=== PATIENT | male | born 1950 | race Caucasian/White ===

== ENCOUNTER 2020-11-08 08:55 | Emergency (ER) | payer MEDICARE, SELFPAY ==
[2020-11-08] VITALS (11 sets, daily range): BP systolic 122–162; BP diastolic 56–81; PULSE 61–82; RESP 16–25; TEMP 36.9; O2SAT 95–98
--- NOTE | ~2020-11-08 | XR_ITS ---
EXAMINATION: XR chest 1V portable DATE: 11/08/2020 10:13 INDICATION: Expressive aphasia. TECHNIQUE: A single frontal view of the chest was obtained. COMPARISON: Chest 2 views 01/30/2018, chest CT 06/08/2016 FINDINGS: There are airspace opacities in the lower lung zones. A calcified left lung nodule and calc ified left hilar lymph nodes are consistent with old granulomatous disease. No pleural effusion or pn eumothorax. The heart size is normal. IMPRESSION: 1. Airspace opacities in the lower lung zones, consistent with atelectasis or less likely pneumonia. Reviewed, dictated and finalized at location B. L ATTORNEY IMPRESSION: 1. Airspace opacities in the lower lung zones, consistent with atelectasis or l ess likely pneumonia.
--- NOTE | ~2020-11-08 | CT_ITS ---
EXAMINATION: CTA BRAIN/CAROTID DATE: 11/08/2020 09:58 INDICATION: Slurred speech TECHNIQUE: Computed tomographic angiography (CTA) of the head and neck was performed with 100 mL Omni paque-350 intravenous contrast. Multiplanar reconstructions and maximum intensity projection 3D-recon structions of the carotid arteries and of the intracranial arteries were created by the technologist on a separate workstation. Precontrast CT of the head was also obtained. Automated exposure control and iterative reconstruction technique were employed.The dose-length product was 1723.06 mGy-cm. COMPARISON: None. FINDINGS: Carotid arteries: There is 30% stenosis of the right carotid bulb relative to normal distal artery lumen diameter (NASC ET criteria). There is complete occlusion of the left carotid bulb relative to normal distal artery l umen diameter. There is reconstitution of the left internal carotid artery at the level of the petrou s portion of the artery likely via collaterals which are too small to visualize. The bilateral cervic al vertebral arteries are codominant and without hemodynamically significant stenosis. Cervical soft tissues and visualized superior mediastinum are unremarkable. Mild mild emphysema at the visualized u pper lungs. Thoracic aorta is normal in caliber with no dissection. Head: Moderate sized region of cytotoxic edema in the left frontal lobe with effacement of the immediately adjacent sulci consistent with acute infarct. No acute intracranial hemorrhage or abnormal extra-axia l fluid collections. There is mild increased prominence of the subarachnoid spaces overlying the conv exities consistent with mild age-appropriate volume loss. Ventricles are normal and symmetric. No mas s/mass effect. No abnormally enhancing brain lesions. The orbits and mastoid air cells are normal. Mi ld mucosal thickening in the bilateral ethmoid sinuses. Intracranial arteries Atherosclerotic plaque at the bilateral carotid siphons with 30% stenosis on the right and up to 60% stenosis on the left. There is no hemodynamically significant stenosis in the vertebral basilar carot id arteries. Vertebral arteries are codominant. There are no aneurysms identified. Both A1 and P1 se gments are patent. Cerebral arterial arborization appears symmetric. IMPRESSION: 1. Moderate-sized region of cytotoxic edema in the left frontal lobe consistent with acute infarct. Bart Garay discussed these findings with Dr. Brown at 10:22 AM. 2. 30% stenosis of the right carotid bulb relative to normal distal artery lumen diameter (NASCET cri teria). 2. 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 3. Atherosclerotic disease at the bilateral carotid siphons with 30% stenosis on the right and 60% on the left. 4. Mild emphysema. Reviewed, dictated and finalized at location A. TIC LIFE LABORER IMPRESSION: 1. Moderate-sized region of cytotoxic edema in the left frontal lobe consistent with acute infarct. Dr. Garay discussed these findings with Dr. Brown at 10:22 AM. 2. 30% stenosis of the right carotid bulb relative to normal distal artery lume n diameter (NASCET criteria). 2. 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 3. Atherosclerotic disease at the bilateral carotid siphons with 30% stenosis o n the right and 60% on the left. 4. Mild emphysema.
[2020-11-08 09:01] LABS: Glucose Point of Care 105 (65-105)
--- NOTE | 2020-11-08 09:06 | ECG_ITS ---
Measurements Intervals [place] Rate: 68 P: 64 WA: 162 QRS: -14 QRSD: 86 T: 62 QT: 373 QTc: 398 Interpretive Statements SINUS RHYTHM ATRIAL PREMATURE COMPLEX BORDERLINE ST ABNORMALITY- ANTEROLATERAL LEADS BASELINE ARTIFACT- V4, V6 BORDERLINE ECG Electronically Signed On 11-08-2020 9:17:11 EXERCISE SCIENTIST by Enoch Muñoz D.O.
--- NOTE | 2020-11-08 09:19 | ED.NEUROSD ---
HPI - Neuro Symptoms/Deficit General Chief Complaint: Suspected CVA Stated Complaint: aphasic, last known normal 1800 12.7 Time Seen by Provider: 11/08/20 08:59 Source: patient Mode of arrival: ambulatory Limitations: language barrier and altered mental status History of Present Illness HPI Narrative: Patient 70-year-old male brought in by EMS due to aphasia. Patient was found this morning by son aphasic. Last known well was 6 PM last night. Related Data Home Medications Medication Instructions Recorded Confirmed naproxen sodium 220 mg tablet 220 mg PO BID PRN 09/05/20 09/05/20 Allergies Allergy/AdvReac Type Severity Reaction Status Date / Time No Known Allergies Allergy Verified 11/08/20 09:36 Review of Systems Review of Systems: All systems reviewed & are unremarkable except as noted in HPI and below Constitutional: Constitutional: Denies body ache(s), Denies chills, Denies excessive sweating, Denies fatigue, Denies fever(s), Denies headache(s), Denies lethargy, Denies malaise, Denies weakness and Denies weight loss Eyes: Eyes: Denies blurry vision, Denies change in vision and Denies loss of vision ENT: Denies dizziness, Denies ear discharge, Denies headache(s), Denies lip swelling, Denies epistaxis, Denies nasal congestion, Denies neck pain, Denies throat swelling and Denies tongue swelling Cardiovascular: Cardiovascular: Denies chest pain, Denies chest pain at rest, Denies chest pain with activity, Denies diaphoresis, Denies rapid heart rate, Denies edema, Denies irregular heart rhythm, Denies lightheadedness, Denies palpitations, Denies dyspnea and Denies dyspnea on exertion Respiratory: Respiratory: Denies chest congestion, Denies cough, Denies hemoptysis, Denies dyspnea and Denies dyspnea on exertion Gastrointestinal: Gastrointestinal: Denies abdominal pain, Denies melena, Denies hematochezia, Denies diarrhea, Denies nausea, Denies vomiting and Denies hematemesis Musculoskeletal: Musculoskeletal: Denies abnormal gait, Denies deformity, Denies joint swelling, Denies limited range of motion, Denies neck pain and Denies numbness Neurologic: Denies abnormal gait, Denies confusion, Denies dizziness, Denies headache(s), Denies focal weakness, Denies loss of vision, Denies numbness, Denies Other visual disturbances and Denies weakness Psychiatric: Psychiatric: Denies confusion, Denies depression, Denies auditory hallucinations, Denies homicidal ideation and Denies suicidal ideation Endocrine: Endocrine: Denies cold intolerance, Denies excessive sweating, Denies fatigue, Denies heat intolerance and Denies palpitations Hematologic/Lymphatic: Hematologic/Lymphatic: Denies easy bleeding and Denies easy bruising Allergic/Immunologic: Allergic/Immunologic: Denies lip swelling, Denies throat swelling and Denies tongue swelling PMFSH Family History Family History Mother Patient's mother is in good health Social History Social History (Updated 09/05/20 @ 08:25 by ALVIN Esteves) Smoking status: Current every day smoker Tobacco type: cigarettes Alcohol intake: never Exam Narrative: Exam Narrative: NIH stroke scale: 9 Const: General: cooperative, healthy appearing, comfortable, no acute distress, well developed, alert and awake; No confusion Orientation/consciousness: No confusion Limitations: no limitations HENMT: Head: normal to inspection, normocephalic and atraumatic Ears: hearing grossly normal bilaterally, TM normal on the right and TM normal on the left General nose exam: Normal external nose present, Normal nares present and No nasal discharge present Face and sinus: normal facial exam Mouth: Yes Normal oral and palatal mucosa present, Yes lip normal, Yes tongue normal and Yes oropharynx normal Throat: posterior oropharynx normal, tonsils normal and uvula midline Eyes: General: appearance normal, both eyes and all related structures Pupils
[2020-11-08 09:22] LABS: Basophils Percent Auto 0.4 % (0.2-1.2); Eosinophils Absolute Auto 0.2 K/mm3 (0-0.3); Eosinophils Percent Auto 2.1 % (0-4.4); Hematocrit 44.7 % (42.0-52.0); Hemoglobin 15.7 g/dL (14.0-18.0); Immature Granulocyte Absolute 0.01 K/mm3 (0.00-0.031); Immature Granulocyte Percent A 0.1 % (0-0.5); Lymphocytes Absolute Auto 2.21 K/mm3 (0.9-3.2); Lymphocytes Percent Auto 27.1 % (18.3-44.2); Mean Corpuscular HGB Conc 35.1 g/dl (32-36); Mean Corpuscular Hemoglobin 32.8 pg (26-34); Mean Corpuscular Volume 93.5 fl (80-100); Mean Platelet Volume 9.3 fl (7.4-10.4); Monocytes Absolute Auto 0.5 K/mm3 (0.1-0.6); Monocytes Percent Auto 5.9 % (2.6-8.5); Neutrophils Absolute Auto 5.3 K/mm3 (1.3-6.7); Neutrophils Percent Auto 64.4 % (45.5-73.1); Platelet Count Result 230 k/mm3 (150-375); Red Blood Count 4.78 M/mm3 (4.6-6.20); Red Cell Distribution Width 12.6 % (11.5-14.5); White Blood Count 8.2 K/mm3 (4.5-10.0)
[2020-11-08 09:32] LABS: INR 0.9; Prothrombin Time 12.6 Seconds (11.1-14.7)
[2020-11-08 09:35] LABS: Anion Gap 6 mmol/L (8-16); Blood Urea Nitrogen 15 mg/dL (9-20); Calcium 9.2 mg/dL (8.4-10.2); Carbon Dioxide 25 mmol/L (22-30); Chloride 106 mmol/L (98-107); Estimated CRCL calculation 70 ml/min; Estimated Glomerular Filt Rate > 60; Glucose 111 mg/dL (75-110); Potassium 4.2 mmol/L (3.4-5.0); Sodium 137 mmol/L (137-145)
[2020-11-08 09:47] LABS: Troponin I < 0.012 ng/mL (0.000-0.034)
== END 2020-11-08 11:50 | disposition short-term general hospital (02) ==
PROVIDERS: Emergency Provider Emergency Medicine; PCP Internal Medicine
DX: I63.9 Cerebral infarction, unspecified (principal); F17.210 Nicotine dependence, cigarettes, uncomplicated; R29.709 NIHSS score 9; I49.1 Atrial premature depolarization; R94.31 Abnormal electrocardiogram [ECG] [EKG]; I65.23 Occlusion and stenosis of bilateral carotid arteries; J43.9 Emphysema, unspecified
CPT/HCPCS: 36415; 70496; 70498; 71045; 80048; 82948; 84484; 85025; 85610; 85730; 93005; 99284; 99285; Q9967

== ENCOUNTER 2021-02-24 10:00 | Outpatient (RCR) | payer MEDICARE, SELFPAY ==
--- NOTE | 2020-11-28 15:31 | STOPEVAL ---
SPEECH THERAPY INITIAL EVALUATION Thank you for referring Ashok Young to [facility].? The patient is scheduled to be seen for therapy? 2-3x/week for 4 weeks. (2-3 times variability as pt relies on others for transportation) Please review, sign, date and return this plan of care MEREDITH. I agree with and certify that the following plan of care is medically necessary. Referring Physician Date Attending Provider: DO JAZMINE Aggarwal Outpatient Evaluation Start: 11/28/20 10:06 Freq: Status: Active Protocol: Document 11/28/20 10:06 BECHERERT (Rec: 11/28/20 11:01 BECHERERT [email or web address]) Therapy Assessment Status Assessment Status Assessment Status Evaluation Outpatient Past Medical History Neurological History Hx Cerebrovascular Accident (CVA) Yes: 11-08-20 Cardiovascular History Hx Hypercholesterolemia Yes Hx Hypertension Yes Respiratory History Hx Chronic Obstructive Pulmonary Disease Yes (COPD) Hx Other Respiratory Disorders Yes: SMOKES 2PPD STARTED AT AGE 11 Gastrointestinal History Hx Gastrointestinal Disorders No Significant History Genitourinary History Hx Benign Prostatic Hyperplasia Yes Musculoskeletal History Hx Musculoskeletal Disorders No Significant History Hematological History Hx Hematological Disorders No Significant History Endocrine History Hx Endocrine Disorders No Significant History HEENT History Hx HEENT Disorders No Significant History Integumentary History Hx Skin Disorders No Significant History Reproductive History Hx Reproductive Disorders No Significant History Psychosocial History Hx Psychiatric Disorders No Significant History Pain History History of Any Previous or Ongoing No Significant History Instance of Pain Anesthesia History Hx Anesthesia Reactions No Significant History Prior Level of Function Activity Level (Last 3 Months) Occupation retired Hand Dominance Left Activity of Daily Living Ability Independent Indoor/Home Mobility Independent Community Mobility Independent Stairs Ability Independent Functional Cognition (Planning, Shopping Independent , Taking Medications) Cooking Yes Cleaning Yes Laundry Yes Shopping Yes Driving Yes Home Setting Home Type Apartment Support Available Local Family Support Mobility Assistive Devices (Used Last 3 None Months) Prior Swallow Level Prior Intake Method Oral Prior Diet Regular (Level 7 Diet) Prior Liquid Consistency Thin (Level 0 Diet) P
--- NOTE | 2020-12-23 14:37 | PCSTNOTE ---
10th visit Progress Note: Subjective: Pleasant and very cooperative. Summary of Progress: Upon initial evaluation, the pt presented with severe aphasia and verbal apraxia. Speech therapy was recommended 3x/week for 4 weeks. As a result of the ongoing treatment and after 10 visits, the pt has exhibited the following improvement: Auditory Comprehension: Pt exhibits improved ability to follow functional conversation; however, ability to follow directions of multi steps is inconsistent. He is able to respond accurately to complex yes/no questions with approximately 80% accuracy Reading Comprehension: Pt is able to identify letters and numbers as well as single words in field of 4 with 80% accuracy. Treatment has advanced to 3-4 word (simple) sentences. Verbal expression: Pt now presents with ability to repeat multi syllable words and phrases/short sentences with approximately 90% and 80% accuracy, respectively. Pt also exhibits ability to participate in brief exchanges in conversation; struggle behaviors, dysfluency, multi attempts, paraphasic errors are exhibited Written expression: Writing has been of minimal focus per pt choice as he wants treatment to focus mainly on verbal expression. Recommendations: Continued ST x3 week 4.
--- NOTE | 2020-12-26 15:02 | STOPEVAL ---
SPEECH THERAPY PROGRESS REPORT AND PLAN OF CARE UPDATE: Thank you for referring Ashok Young to [facility].? The pt is achieving goals and making progress meeting medical necessity for further OP speech therapy. He is scheduled to be seen for therapy? 3x/week for 6 weeks pending insurance approval. Please review, sign, date and return this plan of care MEREDITH. I agree with and certify that the following plan of care is medically necessary. Referring Physician Date Attending Provider: Gregor Tam DO Referring Provider: JAZMINE Outpatient RE-Evaluation Start: 11/28/20 10:06 Freq: Status: Active Protocol: Document 12/26/20 10:05 BECHERERT (Rec: 12/26/20 11:14 BECHERERT [email or web address]) Therapy Assessment Status Assessment Status Assessment Status Re-evaluation Outpatient Past Medical History Neurological History Hx Cerebrovascular Accident (CVA) Yes: 11-08-20 Cardiovascular History Hx Hypercholesterolemia Yes Hx Hypertension Yes Respiratory History Hx Chronic Obstructive Pulmonary Disease Yes (COPD) Hx Other Respiratory Disorders Yes: SMOKES 2PPD STARTED AT AGE 11 Gastrointestinal History Hx Gastrointestinal Disorders No Significant History Genitourinary History Hx Benign Prostatic Hyperplasia Yes Musculoskeletal History Hx Musculoskeletal Disorders No Significant History Hematological History Hx Hematological Disorders No Significant History Endocrine History Hx Endocrine Disorders No Significant History HEENT History Hx HEENT Disorders No Significant History Integumentary History Hx Skin Disorders No Significant History Reproductive History Hx Reproductive Disorders No Significant History Psychosocial History Hx Psychiatric Disorders No Significant History Pain History History of Any Previous or Ongoing No Significant History Instance of Pain Anesthesia History Hx Anesthesia Reactions No Significant History Pain Assessment Timing of Pain Assessment Timing of Pain Assessment Assessment Self Report Self Report Pain Level 0 Pain Score Pain Score 0: Self Report Language Evaluation Auditory Comprehension Complex Yes/No Questions (% Accuracy (0- 80 100)) Auditory Comprehension One-Step 100 Directives (% Accuracy (0-100)) Auditory Comprehension of Two-Step 100 Directives (% Accuracy (0-100)) Auditory Comprehension of Simple 100 Paragraphs (% Accuracy (0-100)) Auditory Comprehension of Complex 100 Paragraphs (% Accuracy (0-100)) Additional Auditory Comprehension Object ID: [email or web address]: 100% with 1 Comments correction Reading Comprehension Name Recognition Yes Numeral Comprehension (% Accuracy (0-100 71 )) Letter Comprehension (%
--- NOTE | 2021-01-23 15:33 | PCSTNOTE ---
10th (actually 20th) visit Progress Note: Subjective: Pleasant and very cooperative. Pt does exhibit frustration intolerance at times. Summary of Progress: Upon initial evaluation, the pt presented with severe aphasia and verbal apraxia. Speech therapy was recommended 3x/week for 4 weeks. As a result of the ongoing treatment and after 20 visits, the pt has exhibited the following improvement: Auditory Comprehension: Pt exhibits improved ability to follow functional conversation; however, ability to follow directions of multi steps is inconsistent. He is able to respond accurately to complex yes/no questions within functional contexts (not as accurate in structured/out of context questions) with approximately 90% accuracy Reading Comprehension: Pt is able to identify letters and numbers as well as single words in field of 4 with 90% accuracy. Treatment has advanced to 3-4 word (simple) sentences. Verbal expression: Pt now presents with ability to repeat multi syllable words and phrases/short sentences with approximately 90% and 80% accuracy, respectively with increasing imposed delays . Pt also continues to exhibit ability to participate in brief exchanges in conversation; slightly less struggle behaviors, dysfluency, multi attempts, &/or paraphasic errors are exhibited Written expression: Writing continues to be of minimal focus per pt choice as he wants treatment to focus mainly on verbal expression. Recommendations: Continued ST x3 week 4.
--- NOTE | 2021-02-10 13:29 | STOPEVAL ---
SPEECH THERAPY PROGRESS REPORT AND PLAN OF CARE UPDATE: Thank you for referring Ashok Young to [facility] [place]Note 2[facility]? The patient is scheduled to be seen for therapy? 2-3x/week (dependent on insurance approval) for 6 weeks. Please review, sign, date and return this plan of care MEREDITH. I agree with and certify that the following plan of care is medically necessary. Referring Physician Date Attending Provider: DO JAZMINE Aggarwal Outpatient RE-Evaluation Language Evaluation Auditory Comprehension Auditory Comprehension of Complex 100 Paragraphs (% Accuracy (0-100)) Factors Limiting Auditory Comprehension Aphasia Overall Auditory Comprehension Ability Mild Deficits Additional Auditory Comprehension - Responds to complex yes/no Comments questions with 90% accuracy when questions are related to functional situations; however, pt appears to have difficulty when #'s are within questions or if questions are of an abstract nature. - Responds to multi directives using & manipulating objects with 50% accuracy; overall,it is noted that pt requires repetition and may even require statements and directions to be reworded. Pt' s family and friends state that he understands their conversations without difficulty. It is suspected pt may have increased diffculty at Dr appointments, the bank, post office etc. Reading Comprehension Name Recognition Yes Numeral Comprehension Comments Identify letters & numerals in increasing marion: 2 digits: #'s in [place] of 3, 4, 5, & 6 all with 90% or greater accuracy Letters: Field of 3: 90% accuracy; letters in field of 4: 25% Single Word Comprehension (% Accuracy (0 71 -100)) Comprehension: 3-4 Words (% Accuracy (0- 25 100)) Overall Reading Comprehension Ability Moderate Deficits Comments Related to Reading attempts to spell out words Comprehension but uses inaccurate letters ( paraphasic errors) Verbal Expression Vowel Imitation (% Accuracy (0-100)) 90 Automatic Speech Ability Mild Deficits [place] [facility]
--- NOTE | 2021-02-27 08:58 | PCSTNOTE ---
This treatment is being continued on visit number [id number]. Please see documentation on both accounts to view progress. Completed interventions, outcomes, and problems have been marked as Inactive to facilitate the copying of the Care plan routine for recurring accounts.
== END 2021-02-26 23:59 | disposition home or self-care (01) ==
LOC: ANHST 10:00
PROVIDERS: PCP Internal Medicine; Visit Provider Internal Medicine
DX: I69.320 Aphasia following cerebral infarction (principal); I69.390 Apraxia following cerebral infarction
CPT/HCPCS: 92507; 92523

== ENCOUNTER 2021-03-10 13:02 | Outpatient (CLI) | payer MEDICARE, SELFPAY ==
--- NOTE | ~2021-03-10 | CT_ITS ---
EXAMINATION: CT lung screening DATE: 03/10/2021 13:37 INDICATION: pers Hx tobacco dependence Z87.891 Personal history of nicotine dependence TECHNIQUE: Computed tomography (CT) of the chest was performed without intravenous contrast. Addition al 3D reconstructions utilizing coronal maximum intensity projection (MIP) were performed. Automated exposure control and iterative reconstruction technique were employed. The dose-length product was 11 2.14 mGy-cm. COMPARISON: Chest CT dated 06/08/2016 FINDINGS: Mild emphysema. Calcified left lower lobe nodule along with calcified left hilar and mediastinal lymp h nodes consistent with old granulomatous disease. No suspicious pulmonary nodules, pneumonia, pulmon radha edema or pleural effusion. Heart size is normal. Atherosclerotic coronary artery calcifications. Aortic valve callus location. No pericardial effusion. Thoracic aorta is normal in caliber. Mild thor acic levocurvature with moderate spondylosis and mild likely physiologic anterior wedging at T12 and L1. There are bridging osteophytes at multiple levels in the spine, consistent with diffuse idiopathi c skeletal hyperostosis (DISH). IMPRESSION: 1. . Lung-RADS category 1: Negative. Continue annual screening with noncontrast low-dose chest CT in 12 months. 2. Mild emphysema. Reviewed, dictated and finalized at location B.
== END 2021-03-10 13:03 | disposition home or self-care (01) ==
PROVIDERS: PCP Internal Medicine; Visit Provider Nurse Practitioner
DX: Z87.891 Personal history of nicotine dependence (principal); J43.9 Emphysema, unspecified
CPT/HCPCS: 71271

== ENCOUNTER 2021-05-24 10:04 | Emergency (ER) | payer MEDICARE, SELFPAY ==
--- NOTE | ~2021-05-24 | XR_ITS ---
XR chest 1V 05/24/2021 11:26 Indication: Dizziness Procedure: AP view of the chest Comparison: 11/08/2020 Findings: Left basilar airspace disease. Heart size normal. Right lung clear. No pleural effusion or pneumothorax. No edema. No acute osseous abnormality. Impression: 1: Left basilar airspace disease may represent atelectasis or pneumonia. Reviewed, dictated and finalized at location B. Impression: 1: Left basilar airspace disease may represent atelectasis or pneumonia.
--- NOTE | ~2021-05-24 | CT_ITS ---
EXAMINATION: CT brain wo con DATE: 05/24/2021 11:24 INDICATION: Dizziness and confusion TECHNIQUE: Computed tomography (CT) of the head was performed without intravenous contrast. The dose- length product was 605.33 mGy-cm. Automated exposure control and iterative reconstruction technique w ere employed. COMPARISON: CT dated 11/08/2020 FINDINGS: There is a chronic left frontal lobe infarction. There is a chronic left parietal lobe infa rction. There is mild compensatory dilation of the frontal horn left lateral ventricle. No midline sh ift. Basilar cisterns are patent. There is intracranial atherosclerosis. No acute intracranial hemorr drake, infarction, mass or mass effect. Paranasal sinuses and mastoids are pneumatized. IMPRESSION: 1. No acute intracranial abnormality. 2: Chronic left frontal and parietal lobe infarctions. Reviewed, dictated and finalized at location B.
[2021-05-24 10:11] VITALS: BP 142/92; PULSE 78; RESP 18; TEMP 35.4; O2SAT 97
--- NOTE | 2021-05-24 10:36 | ECG_ITS ---
Measurements Intervals [place] Rate: 82 P: 51 W[place]: 172 QRS: -16 QRSD: 89 T: 54 QT: 360 QTc: 422 Interpretive Statements SINUS RHYTHM NONSPECIFIC T-WAVE ABNORMALITY- HIGH LATERAL LEADS BASELINE ARTIFACT- I, II, III, AVR, AVL,A VF, V1, V4-V6 BORDERLINE ECG Electronically Signed On 05-24-2021 10:37:49 CDT by Enoch Muñoz D.O.
[2021-05-24 10:45] VITALS: BP 138/76; PULSE 80; RESP 14; TEMP 36.8; O2SAT 98
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
[2021-05-24 11:50] LABS: Basophils Percent Auto 0.3 % (0.2-1.2); Eosinophils Absolute Auto 0.1 K/mm3 (0-0.3); Eosinophils Percent Auto 0.7 % (0-4.4); Hemoglobin 14.4 g/dL (14.0-18.0); Immature Granulocyte Absolute 0.07 K/mm3 (0.00-0.031); Immature Granulocyte Percent A 0.6 % (0-0.5); Lymphocytes Absolute Auto 1.07 K/mm3 (0.9-3.2); Lymphocytes Percent Auto 9.3 % (18.3-44.2); Mean Corpuscular HGB Conc 34.3 g/dl (32-36); Mean Corpuscular Hemoglobin 30.9 pg (26-34); Mean Corpuscular Volume 90.1 fl (80-100); Monocytes Absolute Auto 0.4 K/mm3 (0.1-0.6); Monocytes Percent Auto 3.8 % (2.6-8.5); Neutrophils Absolute Auto 9.8 K/mm3 (1.3-6.7); Neutrophils Percent Auto 85.3 % (45.5-73.1); Platelet Count Result 240 k/mm3 (150-375); Red Blood Count 4.66 M/mm3 (4.6-6.20); Red Cell Distribution Width 12.2 % (11.5-14.5); White Blood Count 11.5 K/mm3 (4.5-10.0)
[2021-05-24 12:01] LABS: Alanine Aminotransferase 37 U/L (4-50); Albumin Level 4.7 g/dL (3.5-5.1); Alkaline Phosphatase 102 U/L (38-126); Anion Gap 11 mmol/L (8-16); Aspartate Amino Transferase 35 U/L (17-59); Bilirubin,Total 0.5 mg/dL (0.2-1.3); Blood Urea Nitrogen 17 mg/dL (9-20); Calcium 9.8 mg/dL (8.4-10.2); Carbon Dioxide 24 mmol/L (22-30); Chloride 104 mmol/L (98-107); Estimated CRCL calculation 59 ml/min; Estimated Glomerular Filt Rate > 60; Glucose 116 mg/dL (75-110); Potassium 4.1 mmol/L (3.4-5.0); Sodium 139 mmol/L (137-145)
[2021-05-24 12:23] LABS: INR 0.9; Prothrombin Time 12.8 Seconds (11.1-14.7)
[2021-05-24 12:24] LABS: Partial Thromboplastin Time 26.5 SECONDS (22.3-36.8)
[2021-05-24 13:06] VITALS: BP 132/86; PULSE 79
[2021-05-24 13:10] VITALS: BP 152/85; BP 154/90; PULSE 80; PULSE 85
--- NOTE | 2021-05-24 13:26 | PC.NURSE ---
pt refusing cath for urine sample
== END 2021-05-24 14:14 | disposition home or self-care (01) ==
PROVIDERS: Emergency Provider Emergency Medicine; PCP Internal Medicine
DX: R42 Dizziness and giddiness (principal); I10 Essential (primary) hypertension; I69.320 Aphasia following cerebral infarction; Z87.891 Personal history of nicotine dependence; Z79.82 Long term (current) use of aspirin
CPT/HCPCS: 36415; 70450; 71045; 80053; 85025; 85610; 85730; 93005; 99284

== ENCOUNTER 2021-05-25 10:00 | Outpatient (RCR) | payer MEDICARE, SELFPAY ==
--- NOTE | 2021-02-27 09:00 | PCSTNOTE ---
The treatment documented on this account is a continuation of the treatment documented on visit number [id number]. Please see documentation on both accounts to view progress. The Plan of Care has been transitioned and updated within the new V#. I have addressed and agree with the discipline specific Problems, Interventions, and Goals for the current certification period. Completed interventions, outcomes, and problems have been marked as Inactive to facilitate the copying of the Care plan routine for recurring accounts.
--- NOTE | 2021-03-10 11:22 | PCSTNOTE ---
10th visit Progress Note: Subjective: Pleasant and very cooperative. Pt does exhibit frustration intolerance at times, but has been started on a medication. Summary of Progress: Auditory Comprehension: Pt exhibits improved ability to follow functional conversation; however, ability to follow directions of multi steps is inconsistent. He is able to respond accurately to complex yes/no questions within functional contexts (not as accurate in structured/out of context questions) with approximately 90-100% accuracy Reading Comprehension: Pt is able to identify 3 digit numbers in marion of to 6 with 90% + accuracy. Treatment has advanced to 3-4 word (simple) sentences; he is able to match 3-4 words to a picture (field of 3) with 60% accuracy. Verbal expression: Pt presents with ability to participate in more slightly more detailed conversational exchanges; pt demonstrates less struggle behaviors, and is increasingly able to formulate sentences. Dysfluency, multi attempts, &/or paraphasic errors are exhibited but has decreased by approximately 25%. Written expression: Writing continues to be of minimal focus per pt choice as he wants treatment to focus mainly on verbal expression. Recommendations: Continued ST 2-3x/week.
--- NOTE | 2021-03-24 14:40 | STOPEVAL ---
SPEECH THERAPY RE EVALUATION AND POC UPDATE: Thank you for referring Ashok Young to [facility].? The patient is scheduled to be seen for therapy? 2x/week for 4 weeks. Please review, sign, date and return this plan of care MEREDITH. I agree with and certify that the following plan of care is medically necessary. Referring Physician Date Attending Provider: Gregor Tam, DO Language RE Evaluation Auditory Comprehension Additional Auditory Comprehension Complex yes/no questions Comments responses are at 80% accuracy when re pt's interests; however, with abstract content , accuracy declines to 40% accuracy Reading Comprehension Numeral Comprehension Comments Pt is able to identify letters in increasing marion (4, 5 & 6) with 80% accuracy Pt is able to identify 3 digit numerals in increasing marion with 90% accuracy: MET up to FO6 Reading Comprehension Comments pt is able to ID 6 words re foods via pointing from a FO6 with 90% accuracy but is not able to point to body part indicated or locate written item in the room. pt is unable to demonstrate comprehension of 3-4 directives with 30% accuracy; however, pt is able to match a 4-5 word sentence to a picture in a field of 2. Response Latency Mild Deficits Comments Related to Reading inconsistent reading abilities Comprehension ; Verbal Expression Comments Related to Verbal Expression Pt is able to respond to ?wh? questions re immediate environment,context &/or familiar topic with 90% accuracy but accuracy is inconsistent; pt is progressing. Pt is able to produce open ended cued speech with 80% accuracy but accuracy is inconsistent; pt is progressing. * Following a spoken model, the pt will articulate a short phrase in response to a question with 75% accuracy but accuracy is inconsiste
--- NOTE | 2021-04-06 13:42 | PCSTNOTE ---
10th visit Progress Note: Subjective: Pleasant and very cooperative. Pt continues to exhibit frustration related to his inconsistent abilities with verbal expression. Summary of Progress: Auditory Comprehension: Pt exhibits improved ability to follow basic functional conversation; however, ability to comprehend complex questioning or follow directions of multi steps is inconsistent. In functional situations outside of therapy, pt has the assist of his son and friends for higher level comprehension needs, i.e. financial and medical. Reading Comprehension: Pt is able to identify 3 digit numbers in marion of to 6 with 90% + accuracy. Pt is able to identify a 5-6 word sentence from a field of 3 and match it to a picture; however, pt is unable to consistently read a 3-4 word directive and follow through. Verbal expression: Pt presents with ability to participate in more slightly more detailed conversational exchanges; pt demonstrates less struggle behaviors, and is increasingly able to formulate sentences. Dysfluency, multi attempts, &/or paraphasic errors are exhibited but has decreased by approximately 30-35%. Written expression: Writing continues to be of minimal focus per pt choice as he wants treatment to focus mainly on verbal expression. Recommendations: Continued ST 2x/week.
--- NOTE | 2021-04-21 13:54 | STOPEVAL ---
SPEECH THERAPY RE EVALUATION AND PLAN OF CARE UPDATE: Thank you for referring Ashok Young to [facility].?The pt continues to achieve steady albeit slow progress in the areas of verbal expression and auditory & reading comprehension. Due to his potential for further progress and improvement, the patient is scheduled to be seen for therapy?2x/week for 7 weeks (although, pt needs to take a week off related to family issues). Please review, sign, date and return this plan of care MEREDITH. I agree with and certify that the following plan of care is medically necessary. Referring Physician Date Admitting Provider: Attending Provider: Gregor Tam, Language RE Evaluation Auditory Comprehension Additional Auditory Comprehension Complex yes/no questions Comments responses are at 90% accuracy when re pt's interests; however, with abstract content , accuracy declines to 50-60% accuracy in which case multiple repetition is required as well as extra processing time and occasionally re wording information Reading Comprehension Reading Comprehension Comments Sentence ID: match field of 3 to a picture: 50% accuracy Pt can identify single words with 90% accuracy: pt is able to ID 6 words via pointing from a FO6 with 90%+ accuracy and is now able to point to ( WRITTEN) body part indicated or locate written item in the room. Pt remains unable to comprehension of 3-4 directives but is able to match a 4-5 word sentence to a picture in a field of 2. Response Latency Mild Deficits Factors Limiting Reading Comprehension Aphasia,Apraxia Comments Related to Reading inconsistent reading abilities Comprehension ; Verbal Expression Vowel Imitation (% Accuracy (0-100)) 90 [place] Speech WFL Single Word Imitation (% Accuracy (0-100 100 )) Phrase Imitation (% Accuracy (0-100)) 100 Automatic Cued Speech (% Accuracy (0-100 72 )) Open Ended Cued Speech (% Accuracy (0- 80 100)) WH Questions (% Accuracy (0-100)) 88 Comments Related to Verbal Expression Following a spoken model, the pt is able to articulate a short phrase in response to a question with 80%
--- NOTE | 2021-05-24 10:24 | PCSTNOTE ---
Pt came to appointment but became ill in the waiting room and decided to leave and go to ER.
--- NOTE | 2021-05-30 08:21 | PCSTNOTE ---
This treatment is being continued on visit number [id number]. Please see documentation on both accounts to view progress. Completed interventions, outcomes, and problems have been marked as Inactive to facilitate the copying of the Care plan routine for recurring accounts.
== END 2021-05-28 23:59 | disposition home or self-care (01) ==
LOC: ANHST 10:00
PROVIDERS: PCP Internal Medicine; Visit Provider Internal Medicine
DX: I69.320 Aphasia following cerebral infarction (principal); I69.390 Apraxia following cerebral infarction
CPT/HCPCS: 92507

== ENCOUNTER 2021-08-03 10:00 | Outpatient (RCR) | payer MEDICARE, SELFPAY ==
--- NOTE | 2021-05-30 08:22 | PCSTNOTE ---
The treatment documented on this account is a continuation of the treatment documented on visit number [id number]. Please see documentation on both accounts to view progress. The Plan of Care has been transitioned and updated within the new V#. I have addressed and agree with the discipline specific Problems, Interventions, and Goals for the current certification period. Completed interventions, outcomes, and problems have been marked as Inactive to facilitate the copying of the Care plan routine for recurring accounts.
--- NOTE | 2021-05-30 16:24 | PCSTNOTE ---
COPY OF MOST RECENT PROGRESS REPORT FROM PREVIOUS V#: Ashok Young Male : 1950 Emr# [id number] 04/21/21 13:54 - ST OP Evaluation by KILEY Montero Acct Num: [id number] : 1950 Patient Age: 70 SPEECH THERAPY RE EVALUATION AND PLAN OF CARE UPDATE: Thank you for referring Ashok Young to [facility].?The pt continues to achieve steady albeit slow progress in the areas of verbal expression and auditory & reading comprehension. Due to his potential for further progress and improvement, the patient is scheduled to be seen for therapy?2x/week for 7 weeks (although, pt needs to take a week off related to family issues). Please review, sign, date and return this plan of care MEREDITH. I agree with and certify that the following plan of care is medically necessary. Referring Physician Date Admitting Provider: Attending Provider: Gregor Tam DO Language RE Evaluation Auditory Comprehension Additional Auditory Comprehension Complex yes/no questions Comments responses are at 90% accuracy when re pt's interests; however, with abstract content , accuracy declines to 50-60% accuracy in which case multiple repetition is required as well as extra processing time and occasionally re wording information Reading Comprehension Reading Comprehension Comments Sentence ID: match field of 3 to a picture: 50% accuracy Pt can identify single words with 90% accuracy: pt is able to ID 6 words via pointing from a FO6 with 90%+ accuracy and is now able to point to ( WRITTEN) body part indicated or locate written item in the room. Pt remains unable to comprehension of 3-4 directives but is able to match a 4-5 word sentence to a picture in a field of 2. Response Latency Mild Deficits Factors Limiting Reading Comprehension Aphasia,Apraxia Comments Related to Reading inconsistent reading abilities Comprehension ; Verbal Expression Vowel Imitation (% Accuracy (0-100)) 90 [place] Speech WFL Single Word Imitation (% Accuracy (0-100 100 )) Phrase Imitation (% Accuracy (0-100)) 100 Automatic Cued Speech (% Accuracy (0-100 72 )) Open Ended Cued Speech (% Accuracy (0- 80 100)) WH Questions (% Accuracy (0-100)) 88 Comments Related to Verbal Expression Following a spo
--- NOTE | 2021-05-30 16:29 | PCSTNOTE ---
Pt canceled therapy for 06-01-21 due to going OOT.
--- NOTE | 2021-06-08 16:49 | STOPEVAL ---
SPEECH THERAPY PROGRESS NOTE AND PLAN OF CARE UPDATE: Thank you for referring Ashok Young to [facility].? The patient is scheduled to be seen for therapy? 2x/week for 4 weeks. Please review, sign, date and return this plan of care MEREDITH. I agree with and certify that the following plan of care is medically necessary. Referring Physician Date Attending Provider: Gregor Tam, DO * Language RE-Evaluation Auditory Comprehension Factors Limiting Auditory Comprehension Aphasia,Apraxia Additional Auditory Comprehension In discourse, auditory Comments comprehension appears WFL. With the use of the compensatory strategy of repetition, the pt demonstrate 's improved processing and comprehension of directions and questions (novel information) with 60% accuracy . Reading Comprehension Reading Comprehension Comments Demonstrate comprehension of 3 -5 word (similar) sentences from a field of 3 with 60% accuracy; pt's friend; however , reported pt requires minimal assist with reading his bills , mail, etc. Factors Limiting Reading Comprehension Aphasia Overall Reading Comprehension Ability mild/mod Verbal Expression Overall Verbal Expression Ability mild/mod Comments Related to Verbal Expression Pt demonstrates ability to: - respond to ?wh? questions of novel information with 50% accuracy. - produce open ended cued speech with 90% accuracy ( simple level) - following a spoken model, the pt can articulate a short phrase in response to a question with 90% accuracy. ST Clinical Summary Clinical Summary ST Clinical Summary Upon completion of re evaluation, the pt continues to exhibit progression albeit slow and steady as reflected in the above scores especially in verbal expression. Pt continues to present with impairment in higher level auditory comprehension, moderate level to lower level reading comprehension, and verbal expression. Pt now
--- NOTE | 2021-07-05 11:53 | STOPEVAL ---
SPEECH THERAPY PROGRESS NOTE AND PLAN OF CARE UPDATE: Thank you for referring Ashok Young to [facility].? The patient is scheduled to be seen for therapy? 2x/week for 4 weeks. Please review, sign, date and return this plan of care MEREDITH. I agree with and certify that the following plan of care is medically necessary. Referring Physician Date Attending Provider: Gregor Tam, DO Language RE Evaluation Auditory Comprehension Additional Auditory Comprehension in therapy pt appropriately Comments interacts and responds. Pt's friends confirm his comprehension is good. Reading Comprehension Response Latency Mild Deficits Factors Limiting Reading Comprehension Aphasia Overall Reading Comprehension Ability mild/mod Comments Related to Reading Pt currently demonstrates Comprehension ability to comprehend 3-5 word sentences Verbal Expression Confrontational Naming Comments wh questions in discourse: 82% accuracy Connected Speech mild/mod Factors Limiting Verbal Function Aphasia,Apraxia Overall Verbal Expression Ability mild/mod Comments Related to Verbal Expression Response to ?wh? questions novel information: goal met; however, pt struggles at times when attempting to elaborate. Pt performance is better in automatic contexts versus structured tasks. Written Expression Comments Related to Written Expression Per pt's close friend, he is able to write checks without difficulty ST Clinical Summary Clinical Summary ST Clinical Summary Upon completion of re evaluation, the pt continues to exhibit progression albeit slow and steady as reflected in the above scores especially in verbal expression & reading comprehension. Pt continues to present with impairment in higher level auditory comprehension, mild/ moderately impaired reading comprehension and verbal expression. Pt now demonstrates increased appropriate speech in simple conversation with paraphasic errors and jargon decreasing. Pt has gradually increased ability to utilize
--- NOTE | 2021-07-21 13:04 | PCSTNOTE ---
Progress Note: 10th Visit: a 10th visit Progress Note: Subjective: Pleasant and very cooperative. Pt continues to exhibit frustration related to his inconsistent abilities with verbal expression. Summary of Progress: Auditory Comprehension: Pt exhibits improved ability and is able to follow nearly any level conversation; however, novel information may require repetition at times. In functional situations outside of therapy, pt has the assist of his son and friends for higher level comprehension needs, i.e. financial and medical if needed. Reading Comprehension: Pt is able to identify numbers and according to his friend, he is able to read his mail without difficulty. Pt continues to have difficulty with reading abstract instructions. Verbal expression: Pt presents with ability to participate in detailed conversational exchanges; pt demonstrates less struggle behaviors, and is increasingly able to formulate sentences. Dysfluency, multi attempts, &/or paraphasic errors are exhibited but has decreased by approximately 50%. Written expression: Writing is not of focus per pt choice as he wants treatment to focus mainly on verbal expression.
--- NOTE | 2021-08-03 17:20 | STOPEVAL ---
SPEECH THERAPY DISCHARGE: Thank you for referring Ashok Young to [facility].?No further Speech Therapy at this time as described below. Please review, sign, date and return this discharger summary MEREDITH. I agree with and certify that the following plan of care is medically necessary. Referring Physician Date Attending Provider: Gregor Tam, DO Language Evaluation Auditory Comprehension Additional Auditory Comprehension With the use of the Comments compensatory strategy of repetition, the pt demonstrates functional processing and comprehension of directions and questions ( novel information). Pt's friend, who accompanies him to all appointments, states that he is able to comprehend without difficulty in social settings. He requires min assistance at Dr appointments as well as in other professional/formal settings. Reading Comprehension Comprehension: 5-7 Words (% Accuracy (0- 80 100)) Reading Comprehension Comments Currently demonstrates inconsistent ability to comprehend functional info; however, friend states Ashok is able to read his familiar mail/bills without difficulty; friend assists him with new information Response Latency Mild Deficits Factors Limiting Reading Comprehension Aphasia Overall Reading Comprehension Ability mild/mod Verbal Expression Open Ended Cued Speech (% Accuracy (0- 44 100)) WH Questions (% Accuracy (0-100)) 73 Confrontational Naming Comments wh questions in discourse: 82% accuracy; however this accuracy fluctuates. Written Expression Comments Related to Written Expression Per pt's close friend, he is able to write checks without difficulty; pt chooses not to focus on written expression at this time. Speech Therapy Teaching Speech Therapy Teaching As Pertains To Verbal Expression Recipient(s) of Teaching Patient,Friend/Other Learning Preferences Demonstration,Discussion,One- on-One Instruction,Visual Barriers to Learning None Readiness to Learn Excellent Teaching Method(s) Demonstration,One-On-One
== END 2021-08-14 13:04 | disposition home or self-care (01) ==
LOC: ANHST 10:00
PROVIDERS: PCP Internal Medicine; Visit Provider Internal Medicine
DX: I69.320 Aphasia following cerebral infarction (principal); I69.390 Apraxia following cerebral infarction
CPT/HCPCS: 92507

== ENCOUNTER 2021-12-06 10:51 | Inpatient (IN) | payer MEDICARE, SELFPAY ==
[2021-12-06] VITALS (11 sets, daily range): BP systolic 129–169; BP diastolic 62–87; PULSE 83–108; RESP 18–34; TEMP 36.6–37.5; O2SAT 83–96
--- NOTE | ~2021-12-06 | XR_ITS ---
XR chest 1V portable 12/10/2021 05:56 Indication: Shortness of breath Procedure: AP portable chest Comparison: Comparison to multiple prior studies sequentially, with oldest reviewed study dated 07/2020. Findings: Bibasilar airspace disease. Heart size is normal. No significant effusion. No pneumothorax. No acute osseous abnormality. There is atherosclerosis of the aorta. Impression: 1: Bibasilar airspace disease may represent atelectasis and/or pneumonia. Reviewed, dictated and finalized at location A. SCREEN OPERATOR Impression: 1: Bibasilar airspace disease may represent atelectasis and/or pneumonia.
--- NOTE | ~2021-12-06 | XR_ITS ---
EXAMINATION: XR chest 1V portable EXAM DATE: 12/06/2021 15:13 INDICATION: SOB. TECHNIQUE: Portable AP frontal chest x-ray was obtained. Comparison is made to prior examination from 05/24/2021. FINDINGS: No confluent consolidation, pneumothorax or pleural effusion suspected. Cardiomediastinal s ilhouette is normal. There are mild bony degenerative changes. IMPRESSION: No acute cardiopulmonary findings. . Reviewed, dictated and finalized at location A. INE PACKAGE SEALER
--- NOTE | ~2021-12-06 | XR_ITS ---
EXAMINATION: XR chest 1V portable DATE: 12/09/2021 07:47 INDICATION: COVID-19 pneumonia. TECHNIQUE: A single frontal view of the chest was obtained. COMPARISON: Chest single view 12/06/2021 FINDINGS: There are patchy airspace opacities in the mid and lower lung zones. No pleural effusion or pneumothorax. The heart size is normal. IMPRESSION: 1. Worsened patchy airspace opacities in the mid and lower lung zones, consistent with COVID-19 pneum onia. Reviewed, dictated and finalized at location A. CTOR CLIENT IMPRESSION: 1. Worsened patchy airspace opacities in the mid and lower lung zones, consiste nt with COVID-19 pneumonia.
--- NOTE | ~2021-12-06 | CT_ITS ---
EXAMINATION: CTA chest PE protocol EXAM DATE: 12/06/2021 17:53 INDICATION: Shortness of air. TECHNIQUE: Spiral CTA of the chest (pulmonary arteries) was performed with 100 cc Omnipaque 350 intr avenous contrast injection. Images were acquired during the pulmonary arterial phase. Coronal maxi mum intensity projection 3D-reconstructions were created by the technologist on dedicated workstation . Axial, coronal and sagittal reformatted images were reviewed. The dose-length product (DLP) for t his examination was 594.60 mGy-cm. The exposure was tailored according to patient size (auto mA exp osure control), and iterative reconstruction (ASIR) was used as additional dose reduction technique. Comparison is made to prior examination from 03/10/2021. FINDINGS: There are no pulmonary emboli in the 1st through 3rd order (central and interlobar) pulmon radha arteries. Some loss of attenuation in the segmental pulmonary arteries due to respiratory motion , but no intraluminal filling defects suspected. No thoracic aortic dissection. There is right low er lobe segmental atelectasis. There is mild emphysema. There are no pleural or pericardial effusion s. Tracheobronchial tree is patent. There is no mediastinal, hilar or axillary lymphadenopathy. There is no pneumothorax. Heart normal in size. There is mild coronary arterial calcification, a rterial sclerosis. Upper abdomen is unremarkable. There is moderate thoracic spondylosis without o steoblastic or osteolytic lesions identified. IMPRESSION: 1. Limited segmental evaluation, but no pulmonary emboli are suspected. 2. Right lower lobe segmental amount of atelectasis. 3. Mild emphysema. Reviewed, dictated and finalized at location A. LING MANAGER
--- NOTE | 2021-12-06 15:52 | ED.GENADULT ---
HPI - General Adult General Chief complaint: Upper Respiratory Infection Stated complaint: covid positive/diff breathing Time Seen by Provider: 12/06/21 14:38 History of Present Illness HPI narrative: Patient is a 71-year-old male who presents ER with concerns of COVID-19. On ' [place] patient had a positive home Covid test. He has had loss of taste and smell. He was recently developed increased shortness of breath and cough. He is unvaccinated. He has history of expressive aphasia and apraxia so communication is limited however he does understand everything that is occurring. Related Data Home Medications Medication Instructions Recorded Confirmed buspirone 5 mg tablet 5 mg PO DAILY tablet 11/20/21 12/06/21 Allergies Allergy/AdvReac Type Severity Reaction Status Date / Time No Known Allergies Allergy Verified 12/06/21 23:02 Review of Systems Review of Systems: All systems reviewed & are unremarkable except as noted in HPI and below Constitutional: Constitutional: Reports fatigue and Reports fever(s) ENT: Comments: Loss of taste and smell Respiratory: Respiratory: Reports cough, Reports dyspnea and Denies wheezing Neurologic: Denies focal weakness and Denies numbness PMFSH Past Medical History Medical History (Updated 12/06/21 @ 20:10 by Cata Interiano MD) Anxiety Chronic obstructive pulmonary disease, unspecified CVA (cerebral vascular accident) Enlarged prostate without lower urinary tract symptoms (luts) Essential (primary) hypertension Essential tremor Hyperlipidemia, unspecified Surgical History Surgical History H/O hernia repair History of appendectomy Family History Family History Mother Patient's mother is in good health Social History Social History Smoking packs per day: 3 Smoking cigarettes per day: 60.0 Years smoked: 60 Smoking pack-years: 180.00 Smoking status: Former smoker Alcohol intake: never Substance use: never Spiritual care concerns: No Exam Narrative: GENERAL: Well-appearing, well-nourished, and in no acute distress. HEAD: Normocephalic, atraumatic. NECK: Supple. CHEST: Wheezing and Rales left lower lung zone. No respiratory distress. HEART: Regular rate and rhythm. Normal peripheral pulses. ABDOMEN: Soft, nontender, nondistended. EXTREMITIES: Normal range of motion. No edema. SKIN: Warm, dry, no rash. NEURO: Alert and oriented x3. Follows commands and answers yes/no questions. Chronic expressive aphasia. PSYCH: Normal mood and affect. Course Course Emergency Course: Accepted for admission by hospitalist service. Given lack of pneumonia and patient's hypoxia with positive D-dimer we will order CTA to rule out PE. Vital Signs Vital signs: Vital Signs Temperature 98.2 F 12/06/21 11:14 Pulse Rate 83 12/06/21 11:14 Respiratory Rate 20 12/06/21 11:14 Blood Pressure 133/82 12/06/21 11:14 Pulse Oximetry 90 12/06/21 11:14 Temperature 98.1 F 12/08/21 04:00 Pulse Rate 82 12/08/21 04:00 Respiratory Rate 16 12/08/21 04:00 Blood Pressure 132/62 12/08/21 04:00 Pulse Oximetry 94 12/08/21 04:00 Medical Decision Making Vital Signs Vital Signs: Vital Signs Temperature 98.2 F 12/06/21 11:14 Pulse Rate 83 12/06/21 11:14 Respiratory Rate 20 12/06/21 11:14 Blood Pressure 133/82 12/06/21 11:14 Pulse Oximetry 90 12/06/21 11:14 Temperature 98.1 F 12/08/21 04:00 Pulse Rate 82 12/08/21 04:00 Respiratory Rate 16 12/08/21 04:00 Blood Pressure 132/62 12/08/21 04:00 Pulse Oximetry 94 12/08/21 04:00 Lab Data Result diagrams: 12/06/21 16:01 12/07/21 07:01 Labs: Lab Results 12/06/21 12/06/21 12/06/21 Range/Units 16:01 16:01 16:01 WBC 7.1 (4.5-10.0) K/mm3 RBC 4.52 L (4
[2021-12-06 16:29] LABS: Basophils Percent Auto 0.1 % (0.2-1.2); Hematocrit 40.5 % (42.0-52.0); Hemoglobin 13.9 g/dL (14.0-18.0); Immature Granulocyte Absolute 0.05 K/mm3 (0.00-0.031); Immature Granulocyte Percent A 0.7 % (0-0.5); Lymphocytes Absolute Auto 0.35 K/mm3 (0.9-3.2); Lymphocytes Percent Auto 4.9 % (18.3-44.2); Mean Corpuscular HGB Conc 34.3 g/dl (32-36); Mean Corpuscular Hemoglobin 30.8 pg (26-34); Mean Corpuscular Volume 89.6 fl (80-100); Mean Platelet Volume 9.7 fl (7.4-10.4); Monocytes Absolute Auto 0.2 K/mm3 (0.1-0.6); Monocytes Percent Auto 2.3 % (2.6-8.5); Neutrophils Absolute Auto 6.5 K/mm3 (1.3-6.7); Platelet Count Result 203 k/mm3 (150-375); Red Blood Count 4.52 M/mm3 (4.6-6.20); White Blood Count 7.1 K/mm3 (4.5-10.0)
[2021-12-06 16:45] LABS: Alanine Aminotransferase 60 U/L (4-50); Albumin Level 4.1 g/dL (3.5-5.1); Alkaline Phosphatase 102 U/L (38-126); Anion Gap 14 mmol/L (8-16); Aspartate Amino Transferase 82 U/L (17-59); Bilirubin,Total 0.7 mg/dL (0.2-1.3); Blood Urea Nitrogen 27 mg/dL (9-20); CRP 5.6 mg/dL (<1.0); Calcium 8.6 mg/dL (8.4-10.2); Carbon Dioxide 23 mmol/L (22-30); Chloride 94 mmol/L (98-107); Estimated Glomerular Filt Rate > 60; Glucose 161 mg/dL (65-110); Potassium 3.6 mmol/L (3.4-5.0); Sodium 131 mmol/L (137-145)
[2021-12-06 17:02] LABS: EDCOVIDSCREEN Positive (Negative)
[2021-12-06 17:17] LABS: D Dimer 1.57 ug/mL (<0.48)
--- NOTE | 2021-12-06 19:15 | PC.NURSE ---
Pt O2 sat 88%. O2 titrated 4L NC at this time.
--- NOTE | 2021-12-06 19:54 | PM.IMHP ---
H&P: HPI History of Present Illness Date/Time: 12/06/21 19:54 HPI: Patient is a 71-year-old male who presents ER with concerns of COVID-19. On 's [place] patient had a positive home Covid test. He has had loss of taste and smell. He was recently developed increased shortness of breath and cough. He is unvaccinated. He has history of expressive aphasia and apraxia so communication is limited however he does understand everything that is occurring. Patient is comfortable with oxygen supplementation. He is aware of the COVID-19 diagnosis. He has agreed to management of remdesivir. In the emergency department the patient was stable and afebrile with a temperature of 98.2?, pulse rate 83, respiratory rate 20, blood pressure 133/82, pulse oximetry 90%. He CBC shows a WBC of 7.1, hemoglobin 13.9, hematocrit 40.5 and a platelet count of 203. His chemistry shows a sodium of 131, potassium of 3.6, chloride of 94, a bicarb of 23, a BUN of 27 a creatinine of 1.1 and a blood glucose of 161. Chest x-ray did not show any acute cardiopulmonary findings. COVID rapid antigen test was positive. The patient was appropriately started on steroid he had, remdesivir. His blood pressure medications were resumed. Patient is admitted as inpatient for at least 2 midnights. He is a full code. Chief Complaint: Cough, shortness of breath Review of Systems Review of Systems: All systems reviewed & are unremarkable except as noted in HPI and below Constitutional: Constitutional: Reports as per HPI, Reports fatigue, Reports fever(s), Reports lethargy and Reports weakness Eyes: Eyes: Reports as per HPI and Denies blurry vision ENT: Reports as per HPI, Denies dysphagia and Denies epistaxis Cardiovascular: Cardiovascular: Reports as per HPI, Denies chest pain, Denies leg edema, Denies palpitations and Reports dyspnea Respiratory: Respiratory: Reports as per HPI, Reports cough, Denies hemoptysis, Reports dyspnea and Denies wheezing Gastrointestinal: Gastrointestinal: Reports as per HPI, Denies diarrhea, Denies nausea and Denies vomiting Genitourinary: Genitourinary: Reports as per HPI Musculoskeletal: Musculoskeletal: Reports as per HPI and Denies numbness Integumentary/Breasts: Skin/Breast: Reports as per HPI Neurologic: Denies focal weakness and Denies numbness Psychiatric: Psychiatric: Reports as per HPI Endocrine: Endocrine: Reports fatigue Allergic/Immunologic: Allergic/Immunologic: Denies wheezing PMFSH Past Medical History Medical History (Updated 12/06/21 @ 20:10 by Cata Interiano MD) Anxiety Chronic obstructive pulmonary disease, unspecified CVA (cerebral vascular accident) Enlarged prostate without lower urinary tract symptoms (luts) Essential (primary) hypertension Essential tremor Hyperlipidemia, unspecified Surgical History Surgical History H/O hernia repair History of appendectomy Family History Family History Mother Patient's mother is in good health Social History Social History Smoking packs per day: 3 Smoking cigarettes per day: 60.0 Years smoked: 60 Smoking pack-years: 180.00 Smoking status: Former smoker Alcohol intake: never Substance use: never Spiritual care concerns: No Meds Home Medications and Allergies Home Medications Medication Instructions Recorded Confirmed Type amlodipine 5 mg tablet 5 mg PO DAILY #90 tablet 06/19/21 12/06/21 Rx aspirin 81 mg tablet,delayed 81 mg PO DAILY #90 tablet 10/30/21 12/06/21 Rx release atorvastatin 80 mg tablet 80 mg PO DAILY #90 tablet 10/30/21 12/06/21 Rx buspirone 5 mg tablet 5 mg PO DAILY tablet 11/20/21 12/06/21 History Allergies Allergy/AdvReac Type Severity Reaction Status Date / Time No Known Allergies Allergy Verified 12/06/21 23:02 Vital Signs Vital Signs -
--- NOTE | 2021-12-06 20:03 | PC.NURSE ---
Pt requesting delay in remdesivir at this time. Requesting to consult with family first. Pt educated on the importance of treatment, will continue to monitor.
[2021-12-06 21:42] LABS: INR 0.9; Prothrombin Time 12.2 Seconds (11.1-14.7)
[2021-12-06] MEDS: REMDESIVIR 200 MG/NS 250 ML 200 MG/250 ML BAG 250 MG IVPB (22:27)
--- NOTE | 2021-12-06 23:45 | ADMGEN ---
This patient, Ashok Young, was admitted to [facility] Surg Room 326-01. Patient/family oriented to hospital policies and general routines including ID bracelet, bed and alarms, visiting hours, pain management, procedures, bathroom and other care routines, personal items, smoking policy, room service/diet, and visiting hours. Information on how to activate the Rapid Response Team has been discussed. Patient/Family are encouraged to report perceived risks to care and to ask questions if they do not understand what they are told or what they should do.
[2021-12-07] VITALS (8 sets, daily range): BP systolic 135–139; BP diastolic 66–76; PULSE 82–117; RESP 16–32; TEMP 36.4–37; O2SAT 90–94; BMI 26.6
[2021-12-07 07:44] LABS: INR 0.9; Prothrombin Time 11.6 Seconds (11.1-14.7)
[2021-12-07 07:46] LABS: Alanine Aminotransferase 78 U/L (4-50); Estimated CRCL calculation 54 ml/min; Estimated Glomerular Filt Rate > 60
--- NOTE | 2021-12-07 10:09 | PM.IMPN ---
Progress Note: A&P Assessment and Plan (1) Acute respiratory disease due to COVID-19 virus: Code(s): U07.1 - COVID-19; J06.9 - Acute upper respiratory infection, unspecified Status: Acute Assessment and Plan: Patient was previously diagnosed with COVID-19 at home on a home COVID test on [place]. This was confirmed by rapid antigen test here. His symptomatic with loss of taste and smell, any symptoms of worsened with shortness of breath and cough. Unfortunately isn't vaccinated. He was promptly started on steroid and remdesivir. He requires modest oxygen supplementation at 2 L today, which is new. Continue conservative management. (2) Essential (primary) hypertension: Code(s): I10 - Essential (primary) hypertension Status: Acute Assessment and Plan: Blood pressure is stable on admission and was restarted on amlodipine 10 mg p.o. daily. BP is moderately control with blood pressure measurement today 139/73. Continue amlodipine 10 mg p.o. daily. (3) Chronic obstructive pulmonary disease, unspecified: Code(s): J44.9 - Chronic obstructive pulmonary disease, unspecified Status: Acute Assessment and Plan: Left lower lobe wheezing and rales. Rhonchi can be heard diffusely. T continue PRN inhalers ordered. (4) CVA (cerebral vascular accident): Code(s): I63.9 - Cerebral infarction, unspecified Status: Acute Assessment and Plan: Patient has a history of stroke with residual expressive aphasia. Subjective Date/time seen: 12/07/21 10:09 S: Patient was seen and examined at the bedside. He is comfortable on 2 L oxygen. He is anxious to go home. Review of Systems Review of Systems: All systems reviewed & are unremarkable except as noted in HPI and below Constitutional: Constitutional: Reports as per HPI, Reports fatigue, Reports fever(s), Reports lethargy and Reports weakness Eyes: Eyes: Reports as per HPI and Denies blurry vision ENT: Reports as per HPI, Denies dysphagia and Denies epistaxis Cardiovascular: Cardiovascular: Reports as per HPI, Denies chest pain, Denies leg edema, Denies palpitations and Reports dyspnea Respiratory: Respiratory: Reports as per HPI, Reports cough, Denies hemoptysis, Reports dyspnea and Denies wheezing Gastrointestinal: Gastrointestinal: Reports as per HPI, Denies dysphagia, Denies diarrhea, Denies nausea and Denies vomiting Genitourinary: Genitourinary: Reports as per HPI Musculoskeletal: Musculoskeletal: Reports as per HPI and Denies numbness Integumentary/Breasts: Skin/Breast: Reports as per HPI Neurologic: Denies focal weakness, Denies numbness and Reports weakness Psychiatric: Psychiatric: Reports as per HPI Endocrine: Endocrine: Reports fatigue and Denies palpitations Allergic/Immunologic: Allergic/Immunologic: Denies wheezing Exam Narrative: GENERAL: Well-appearing, well-nourished, and in no acute distress. HEAD: Normocephalic, atraumatic. NECK: Supple. CHEST: Bilateral diffuse rhonchi. Wheezing and Rales left lower lung zone. No respiratory distress. HEART: Regular rate and rhythm. Normal peripheral pulses. ABDOMEN: Soft, nontender, nondistended. EXTREMITIES: Normal range of motion. No edema. SKIN: Warm, dry, no rash. NEURO: Alert and oriented x3. Follows commands and answers yes/no questions. Chronic expressive aphasia. PSYCH: Normal mood and affect. Objective Data Vital Signs Vital Signs: Vital Signs - 24 hr 12/06/21 11:14 12/06/21 13:08 12/06/21 14:47 Temperature 98.2 F 97.8 F Pulse Rate 83 101 H Respiratory Rate 20 18 Blood Pressure 133/82 145/62 H Pulse Oximetry 90 83 L 93 12/06/21 14:50 12/06/21 16:07 12/06/21 18:47 Temperature Pulse Rate 104 H 94 106 H Respiratory Rate 28 H 28 H 24 H Blood Pressure 129/70 145/78 H 151/85 H Pulse Oximetry 93 90 93 12/06/21 19:53 12/06/21 21:10 12/06/21 22:22 Temperature Pulse Rate 107 H 106 H 102 H Respiratory Rate 26 H
[2021-12-07] MEDS: ASPIRIN 81 MG ENTERIC TABLET PO (11:00)
[2021-12-07] MEDS: busPIRone HCL 5 MG TABLET PO (11:00)
[2021-12-07] MEDS: amLODIPine BESYLATE 5 MG TABLET PO (11:00)
[2021-12-07] MEDS: ATORVASTATIN 40 MG TABLET 80 MG PO (11:00)
[2021-12-07] MEDS: ENOXAPARIN 40 MG/0.4 ML SYRINGE SUB-Q (12:43)
[2021-12-08] VITALS (8 sets, daily range): BP systolic 129–142; BP diastolic 62–85; PULSE 65–97; RESP 16–22; TEMP 36.2–36.7; O2SAT 85–94
[2021-12-08 07:34] LABS: INR 0.9; Prothrombin Time 12.5 Seconds (11.1-14.7)
[2021-12-08 07:37] LABS: Alanine Aminotransferase 76 U/L (4-50); Estimated CRCL calculation 60 ml/min; Estimated Glomerular Filt Rate > 60
[2021-12-08] MEDS: ATORVASTATIN 40 MG TABLET 80 MG PO (08:27)
[2021-12-08] MEDS: ENOXAPARIN 40 MG/0.4 ML SYRINGE SUB-Q (08:27)
[2021-12-08] MEDS: busPIRone HCL 5 MG TABLET PO (08:28)
[2021-12-08] MEDS: amLODIPine BESYLATE 5 MG TABLET PO (08:28)
[2021-12-08] MEDS: ASPIRIN 81 MG ENTERIC TABLET PO (08:28)
--- NOTE | 2021-12-08 11:01 | PM.IMPN ---
Progress Note: A&P Assessment and Plan (1) Acute respiratory disease due to COVID-19 virus: Code(s): U07.1 - COVID-19; J06.9 - Acute upper respiratory infection, unspecified Status: Acute Assessment and Plan: Under vaccinated patient previously diagnosed on the home COVID test. Patient presented with mild symptoms, had a new oxygen requirement at 2 L yesterday. Currently acute respiratory failure requiring 5 L of oxygen supplementation. Given his age, severe COPD, will proceed with standard treatment with 10 days of the exam it was on and 5 days of remdesivir. Pulmonary has been consulted. His son was reluctant to start the treatment; was counseled about the positive resolved experience with the [facility] and with to proceed with Gram this severe. (2) Essential (primary) hypertension: Code(s): I10 - Essential (primary) hypertension Status: Acute Assessment and Plan: Blood pressure has remained stable since admission; continue amlodipine 10 mg p.o. daily. BP is controlled l with blood pressure measurement today 129/68. (3) Chronic obstructive pulmonary disease, unspecified: Code(s): J44.9 - Chronic obstructive pulmonary disease, unspecified Status: Acute Assessment and Plan: Left lower lobe wheezing and rales. Rhonchi can be heard diffusely. Continue schedule inhaler. Increase steroids. (4) CVA (cerebral vascular accident): Code(s): I63.9 - Cerebral infarction, unspecified Status: Acute Assessment and Plan: Patient has a history of stroke with residual expressive aphasia. Patient has difficulty expressing his thoughts. However he is fully cognizant. Subjective Date/time seen: 12/08/21 10:01 S: Patient was seen and examined at the bedside. He denies any complaints. He does not seem to be in any distress. Review of Systems Review of Systems: All systems reviewed & are unremarkable except as noted in HPI and below Constitutional: Constitutional: Reports as per HPI, Reports fatigue, Reports fever(s), Reports lethargy and Reports weakness Eyes: Eyes: Reports as per HPI and Denies blurry vision ENT: Reports as per HPI, Denies dysphagia and Denies epistaxis Cardiovascular: Cardiovascular: Reports as per HPI, Denies chest pain, Denies leg edema, Denies palpitations and Reports dyspnea Respiratory: Respiratory: Reports as per HPI, Reports cough, Denies hemoptysis, Reports dyspnea and Denies wheezing Gastrointestinal: Gastrointestinal: Reports as per HPI, Denies dysphagia, Denies diarrhea, Denies nausea and Denies vomiting Genitourinary: Genitourinary: Reports as per HPI Musculoskeletal: Musculoskeletal: Reports as per HPI and Denies numbness Integumentary/Breasts: Skin/Breast: Reports as per HPI Neurologic: Denies focal weakness, Denies numbness and Reports weakness Psychiatric: Psychiatric: Reports as per HPI Endocrine: Endocrine: Reports fatigue and Denies palpitations Allergic/Immunologic: Allergic/Immunologic: Denies wheezing Exam Const: General: comfortable and no acute distress HENMT: Mouth: Yes moist mucous membranes Eyes: Sclera: sclerae normal Pupils: Equal, round and reactive pupils present Neck: Lymphatic: lymphadenopathy not noted Resp: Effort & Inspection: normal respiratory effort Auscultation: clear to auscultation bilaterally, no crackles, no rales, no rhonchi and no wheezes Cardio: Rate: regular rate Rhythm: regular rhythm Heart sounds: no gallops, no murmurs and no rubs GI: Inspection: non-distended GI Palp: Yes Soft to palpation, No Tenderness to palpation present (GI) and No Guarding due to palpation present (GI) Percussion: Yes normal to percussion Auscultation: normal bowel sounds : Male General Exam: Yes normal external exam Urinary Catheter: Urinary Catheter: patent and draining and urine clear Skin: General skin exam: no rashes or lesions noted and no erythema Rashes: no rashes noted Wounds: wound
[2021-12-08] MEDS: REMDESIVIR 100 MG/NS 250 ML 100 MG/250 ML BAG 250 MG IVPB (11:23)
--- NOTE | 2021-12-08 15:43 | PM.CNPUL ---
Assessment and Plan Assessment and plan (1) Acute respiratory disease due to COVID-19 virus: Code(s): U07.1 - COVID-19; J06.9 - Acute upper respiratory infection, unspecified Status: Acute Assessment and Plan: Patient tested positive for COVID-19 on 12/06 and started on remdesivir, dexamethasone on 12/06 - Remdesivir for 10 days unless he should recover and tolerate room air with rest, ambulation and while sleeping. - Dexamethasone 6 mg IV for 10 days - Continuous pulse oximetry - Prone positioning as tolerated. - Avoid any fluid overload. - No evidence of bacterial infection at this time. Agree with no antibiotics. - Albuterol And ipratropium nebulizers q.4 hours for now, no wheezes. - Will check influenza swab. Keep saturations are 90-94% with nasal cannula up to 15 L, if fails then Airvo high flow nasal cannula and add tocilizumab or baracitinib, if fails then BiPAP, if fails then mechanical ventilation if he remains a full code. (2) Respiratory failure with hypoxia: Code(s): J96.91 - Respiratory failure, unspecified with hypoxia Status: Acute Assessment and Plan: Etiology of hypoxic respiratory failure is COVID pneumonia. CT angiogram was negative for PE. No evidence of fluid overload on exam. I will check a Chest x-ray and BNP in the morning. Patient tells me he has had enough blood tests and is refusing a blood gas at this time. 12/06 11:00 RA 90% 12/06 14:45 2L 93% 12/07 14:45 5 L 94% 12/07 20:00 5 L 90% 12/08 09:15 5 L 90% 12/08 16:00 9 L 90% Keep saturations are 90-94% titered as above Discussed with Dr. gaona. Will sign off. Please call for additional questions. History of Present Illness History of Present Illness Consult date: 12/08/21 Requesting physician: Cata Interiano MD Reason for consult: hypoxemia and other (COVID pneumonia) Chief complaint: COVID, Hypoxia Narrative: 12/08/2021: This is a new Pulmonary consult for COVID pneumonia with hypoxemic respiratory failure. 71 year old man with a history of CVA, expressive aphasia, hypertension, essential tremor, anxiety, COPD from tobacco exposure presented to the emergency room on 12/06/2021 with shortness of breath and hypoxemic respiratory failure. patient has lost his taste and smell and had worsening shortness of breath. His white blood cell count was 7.1, creatinine 1.1, chest x-ray without focal infiltrates, his D-dimer was positive and he had a CT angiogram of the chest that showed no pulmonary embolism, mild apical predominant centrilobular emphysema and small right middle lobe peripheral ground-glass infiltrate, small left lower lobe peripheral infiltrate and mild right lower lobe peripheral infiltrate. His rapid COVID antigen test was positive and he was started on Remdesivir and dexamethasone on 12/06. patient required 2 L nasal cannula. On 12/07 patient required 5 L nasal cannula. I was consulted. Of note patient is on vaccinated and states that 3 of his family members also have COVID. Patient states that he has COPD but he is on no COPD medicines. Patient smoked tobacco from age 28 to 1 year ago at 1 pack per day for a total of 42 pack years. Patient denies vaping, illicit drug use, and does state he worked in the [employer] but cannot tell me what he did. On 12/08/2021 patient States that he is feeling minimally better and still has dyspnea on exertion. Patient denies fever, chills, rigors, rest shortness of breath, hemoptysis or chest pains. Patient saturation on 5 L was 86% and I increased him to 9 L and his saturations were 90%. DATA: EXAMINATION: CTA chest PE protocol EXAM DATE: 12/06/2021 17:53 INDICATION: Shortness of air. TECHNIQUE: Spiral CTA of the chest (pulmonary arteries) was performed with 100 cc Omnipaque 350 intravenous contrast injection. Images were acquired during the pulmonary arterial phase. Coronal maximum intensity projection 3D-rec
[2021-12-08] MEDS: WATER FOR IRRIGATION, STERILE 1,000 ML BOTTLE 1000 ML (17:44)
[2021-12-08 18:17] LABS: Influenza Control Positive
[2021-12-08] MEDS: ALBUTEROL SULFATE NEB 2.5 MG/0.5 ML INH 5 MG INHALATION (19:48)
[2021-12-08] MEDS: IPRATROPIUM BR 0.02% INH SOLN 0.5 MG/2.5 ML VIAL INHALATION (19:48)
[2021-12-09] VITALS (14 sets, daily range): BP systolic 125–158; BP diastolic 70–103; PULSE 75–110; RESP 18–30; TEMP 36.1–36.9; O2SAT 90–96
[2021-12-09] MEDS: ALBUTEROL SULFATE NEB 2.5 MG/0.5 ML INH 5 MG INHALATION ×3 (00:26→17:42)
[2021-12-09] MEDS: IPRATROPIUM BR 0.02% INH SOLN 0.5 MG/2.5 ML VIAL INHALATION ×3 (00:27→17:43)
[2021-12-09 09:09] LABS: Basophils Absolute Auto 0.1 K/mm3 (0.0-0.1); Basophils Percent Auto 0.3 % (0.2-1.2); Eosinophils Absolute Auto 0.2 K/mm3 (0-0.3); Eosinophils Percent Auto 1.1 % (0-4.4); Hematocrit 43.6 % (42.0-52.0); Hemoglobin 15.3 g/dL (14.0-18.0); Immature Granulocyte Absolute 0.33 K/mm3 (0.00-0.031); Immature Granulocyte Percent A 1.8 % (0-0.5); Lymphocytes Absolute Auto 0.63 K/mm3 (0.9-3.2); Lymphocytes Percent Auto 3.5 % (18.3-44.2); Mean Corpuscular HGB Conc 35.1 g/dl (32-36); Mean Corpuscular Volume 88.4 fl (80-100); Mean Platelet Volume 9.4 fl (7.4-10.4); Monocytes Absolute Auto 0.9 K/mm3 (0.1-0.6); Neutrophils Percent Auto 88.3 % (45.5-73.1); Platelet Count Result 326 k/mm3 (150-375); Red Blood Count 4.93 M/mm3 (4.6-6.20); Red Cell Distribution Width 13.1 % (11.5-14.5); White Blood Count 18.1 K/mm3 (4.5-10.0)
[2021-12-09 09:24] LABS: INR 0.9; Prothrombin Time 12.5 Seconds (11.1-14.7)
[2021-12-09 09:28] LABS: Alanine Aminotransferase 72 U/L (4-50); Anion Gap 12 mmol/L (8-16); Blood Urea Nitrogen 39 mg/dL (9-20); CRP 4.1 mg/dL (<1.0); Calcium 8.7 mg/dL (8.4-10.2); Carbon Dioxide 28 mmol/L (22-30); Chloride 93 mmol/L (98-107); Estimated CRCL calculation 60 ml/min; Estimated Glomerular Filt Rate > 60; Glucose 121 mg/dL (65-110); Lactate Dehydrogenase 1015 U/L (313-618); NT Pro B Type Natriuretic Pept 412 pg/mL (5-100); Potassium 3.7 mmol/L (3.4-5.0); Sodium 133 mmol/L (137-145)
[2021-12-09] MEDS: amLODIPine BESYLATE 5 MG TABLET PO (09:59)
[2021-12-09] MEDS: ENOXAPARIN 40 MG/0.4 ML SYRINGE SUB-Q (10:00)
[2021-12-09] MEDS: ATORVASTATIN 40 MG TABLET 80 MG PO (10:00)
[2021-12-09] MEDS: busPIRone HCL 5 MG TABLET PO (10:00)
[2021-12-09] MEDS: ASPIRIN 81 MG ENTERIC TABLET PO (10:00)
[2021-12-09 10:05] LABS: Erythrocyte Sedimentation Rate 38 mm/hr (0-20)
[2021-12-09] MEDS: REMDESIVIR 100 MG/NS 250 ML 100 MG/250 ML BAG 250 MG IVPB (10:44)
--- NOTE | 2021-12-09 14:25 | PM.IMPN ---
Progress Note: A&P Assessment and Plan (1) Acute respiratory disease due to COVID-19 virus: Code(s): U07.1 - COVID-19; J06.9 - Acute upper respiratory infection, unspecified Status: Acute Assessment and Plan: Unvaccinated patient previously diagnosed on the home COVID test. Patient originally presented with fairly mild symptoms, had a new oxygen requirement at 2 L on 12/07. On 12/08 he experience worsening acute respiratory failure requiring 5 L of oxygen supplementation. Overnight patient had to be switched on high-flow therapy with nasal cannula at 15 L. Currently he has been weaned to non-rebreather. Pulmonary has been consulted. Influenza swab came back negative. - Remdesivir for 10 days unless he should recover and tolerate room air with rest, ambulation and while sleeping. - Dexamethasone 6 mg IV for 10 days - Continuous pulse oximetry - Prone positioning as tolerated. - Avoid any fluid overload. - No evidence of bacterial infection at this time. Agree with no antibiotics. - Albuterol And ipratropium nebulizers q.4 hours for now, no wheezes. (2) Essential (primary) hypertension: Code(s): I10 - Essential (primary) hypertension Status: Acute Assessment and Plan: Blood pressure has remained stable since admission; continue amlodipine 10 mg p.o. daily. BP is moderately controlled l with blood pressure measurement today 139/91-155/70. Currently patient is acutely ill. There is no indication for titration of his medication. (3) Chronic obstructive pulmonary disease, unspecified: Code(s): J44.9 - Chronic obstructive pulmonary disease, unspecified Status: Acute Assessment and Plan: Improvement of gas exchanges. Continue scheduled inhaler. Continue steroid per Pulmonary recommendations. (4) CVA (cerebral vascular accident): Code(s): I63.9 - Cerebral infarction, unspecified Status: Acute Assessment and Plan: Patient has a history of stroke with residual expressive aphasia. Patient has difficulty expressing his thoughts. However he is fully cognizant. Subjective Date/time seen: 12/09/21 14:25 S: Patient was seen and examined at the bedside. He is breathing comfortably on the non-rebreather. He denied any complaints. He did not seem to be in any distress. Review of Systems Review of Systems: All systems reviewed & are unremarkable except as noted in HPI and below Constitutional: Constitutional: Reports as per HPI, Reports fatigue, Reports fever(s), Reports lethargy and Reports weakness Eyes: Eyes: Reports as per HPI and Denies blurry vision ENT: Reports as per HPI, Denies dysphagia and Denies epistaxis Cardiovascular: Cardiovascular: Reports as per HPI, Denies chest pain, Denies leg edema, Denies palpitations and Reports dyspnea Respiratory: Respiratory: Reports as per HPI, Reports cough, Denies hemoptysis, Reports dyspnea and Denies wheezing Gastrointestinal: Gastrointestinal: Reports as per HPI, Denies dysphagia, Denies diarrhea, Denies nausea and Denies vomiting Genitourinary: Genitourinary: Reports as per HPI Musculoskeletal: Musculoskeletal: Reports as per HPI and Denies numbness Integumentary/Breasts: Skin/Breast: Reports as per HPI Neurologic: Reports confusion, Denies focal weakness, Denies numbness and Reports weakness Psychiatric: Psychiatric: Reports as per HPI and Reports confusion Endocrine: Endocrine: Reports fatigue and Denies palpitations Allergic/Immunologic: Allergic/Immunologic: Denies wheezing Exam Const: General: comfortable, no acute distress and confusion Orientation/consciousness: confusion HENMT: Mouth: Yes moist mucous membranes Eyes: Sclera: sclerae normal Pupils: Equal, round and reactive pupils present Neck: Lymphatic: lymphadenopathy not noted Resp: Effort & Inspection: normal respiratory effort Auscultation: clear to auscultation bilaterally, no crackles, no rales, no rhonchi and no wheezes Cardio
[2021-12-09 14:37] LABS: Aspartate Amino Transferase 79 U/L (17-59)
[2021-12-09] MEDS: BARICITINIB 2 MG TABLET 4 MG PO (15:54)
[2021-12-09 16:28] LABS: CRP 4.2 mg/dL (<1.0)
--- NOTE | 2021-12-09 17:04 | PCRCNOTE ---
Window of time for administration has passed. See next scheduled administration.
--- NOTE | 2021-12-09 17:23 | PC.NURSE ---
This patient, Ashok Young, was transferred to IMU on 12/09/21 at 1723. Personal belongings sent with patient. Report given to Christal ROMERO. Appropriate documentation sent with patient.
[2021-12-10] VITALS (25 sets, daily range): BP systolic 135–158; BP diastolic 68–99; PULSE 91–127; RESP 24–41; TEMP 35.8–37; O2SAT 46–96
--- NOTE | 2021-12-10 00:37 | PCRCNOTE ---
Window of time for administration has passed. See next scheduled administration.
[2021-12-10] MEDS: IPRATROPIUM BR 0.02% INH SOLN 0.5 MG/2.5 ML VIAL INHALATION ×5 (00:40→22:14)
[2021-12-10] MEDS: ALBUTEROL SULFATE NEB 2.5 MG/0.5 ML INH 5 MG INHALATION ×5 (00:40→22:14)
[2021-12-10] MEDS: FUROSEMIDE INJ 40 MG/4 ML VIAL 20 MG IV PUSH (05:20)
--- NOTE | 2021-12-10 05:20 | PM.EVENT ---
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 Patient had a large a BM which was dark in color. Vitals showed a blood pressure of 147/80 pulse oximetry was reading in 60%. A call was placed out to his who makes his healthcare decision and his power of attorney law clerk and stated that she does not want him on a ventilator. Patient has been placed on BiPAP start labs in progress, will continue to monitor. Supportive care. Subjective: I'm fine General: Patient is awake alert in bed motor respiratory distress. HEENT: Atraumatic normocephalic, PERRLA, supple, no JVD. Respiratory: Diminished breath sounds throughout ,coarse, crackles. Cardiovascular: S1-S2 heard, no murmurs rubs or gallops. Abdo: Distended, non tender, no hepatosplenomegaly. BS+ Extremities: Libedo reticularis GARNETT FIXER: Awake alert, muscle strength 5 throughout, CN ii-xii grossly intact Assessment and plan: 71-year-old male with acute hypoxic respiratory failure in the setting of COVID-19 pneumonia. 1. BiPAP, patient is a DNI, stat CBC, BMP, magnesium, phosphorus, chest x-ray and lactic acid. Lasix 20 mg IV push wounds plus morphine 1 mg IV push 1 Supportive care.
[2021-12-10] MEDS: MORPHINE SULFATE (*CRX) 2 MG/ML INJ 1 MG IV PUSH (05:27)
[2021-12-10 05:47] LABS: Basophils Absolute Auto 0.1 K/mm3 (0.0-0.1); Basophils Percent Auto 0.5 % (0.2-1.2); Hematocrit 36.9 % (42.0-52.0); Immature Granulocyte Absolute 0.45 K/mm3 (0.00-0.031); Immature Granulocyte Percent A 2.7 % (0-0.5); Lymphocytes Absolute Auto 0.56 K/mm3 (0.9-3.2); Lymphocytes Percent Auto 3.4 % (18.3-44.2); Mean Corpuscular HGB Conc 35.2 g/dl (32-36); Mean Corpuscular Hemoglobin 30.7 pg (26-34); Mean Platelet Volume 9.4 fl (7.4-10.4); Monocytes Absolute Auto 0.5 K/mm3 (0.1-0.6); Monocytes Percent Auto 2.7 % (2.6-8.5); Neutrophils Absolute Auto 14.9 K/mm3 (1.3-6.7); Neutrophils Percent Auto 90.7 % (45.5-73.1); Platelet Count Result 337 k/mm3 (150-375); Red Blood Count 4.24 M/mm3 (4.6-6.20); Red Cell Distribution Width 12.7 % (11.5-14.5); White Blood Count 16.5 K/mm3 (4.5-10.0)
[2021-12-10 05:56] LABS: Lactic Acid Reflex 1.9 mmol/L (0.7-2.1)
[2021-12-10 05:56] LABS: Prothrombin Time 13.3 Seconds (11.1-14.7)
[2021-12-10 05:59] LABS: Anion Gap 12 mmol/L (8-16); Blood Urea Nitrogen 53 mg/dL (9-20); Calcium 8.1 mg/dL (8.4-10.2); Carbon Dioxide 21 mmol/L (22-30); Chloride 96 mmol/L (98-107); Estimated CRCL calculation 67 ml/min; Estimated Glomerular Filt Rate > 60; Glucose 132 mg/dL (65-110); Magnesium 2.4 mg/dL (1.6-2.3); Phosphorus 3.3 mg/dL (2.5-4.5); Potassium 3.7 mmol/L (3.4-5.0); Sodium 129 mmol/L (137-145)
[2021-12-10 06:01] LABS: CRP 5.6 mg/dL (<1.0)
--- NOTE | 2021-12-10 06:30 | PC.NURSE ---
Spoke with patient's Araseli. Family seeking transfer to hospital in [place] affiliated with [facility]. Notified Dr. Concepcion of family request.
--- NOTE | 2021-12-10 07:29 | PM.IMPN ---
Progress Note: A&P Assessment and Plan (1) Acute respiratory disease due to COVID-19 virus: Code(s): U07.1 - COVID-19; J06.9 - Acute upper respiratory infection, unspecified Status: Acute Assessment and Plan: Unvaccinated patient previously diagnosed on the home COVID test. Patient originally presented with fairly mild symptoms, had a new oxygen requirement at 2 L on 12/07. On 12/08 he experience worsening acute respiratory failure requiring 5 L of oxygen supplementation. On 12/09, patient had to be switched on high-flow therapy with nasal cannula at 15 L. Early during the day the patient required 15 L and was later started with Airvo during the afternoon. 12/10/2022: Patient required BiPAP overnight; he became nauseous this morning and had to be switched to non-rebreather. He was given a single dose of IV lasix. He was saturating 85% on non-rebreather and had to be started on Airvo. Currently saturating 95%. Currently he has been weaned to non-rebreather. Pulmonary has been consulted. Influenza swab came back negative. Ferritin elevated at 12 70. C-reactive protein increased from 4.2-5.6 today. LDH is elevated at 1000. - Remdesivir for 10 days unless he should recover and tolerate room air with rest, ambulation and while sleeping. - Dexamethasone 6 mg IV for 10 days - Continuous pulse oximetry - Prone positioning as tolerated. - Avoid any fluid overload. - No evidence of bacterial infection at this time. - Albuterol And ipratropium nebulizers q.4 hours for now, no wheezes. -I discussed with his on the phone and his son Jose. They are require transfer. Given the current pandemic and the lack of ability availability a call was made to [facility] and [place]. However patient is unstable and would not be able to sustain the trip without being intubated. Face time call was made with the phone. Patient confirms he does not want intubation. Patient is currently listed at [facility] in [place]. Stability for transfer will be revisited once a bed is made available. (2) Essential (primary) hypertension: Code(s): I10 - Essential (primary) hypertension Status: Acute Assessment and Plan: Blood pressure has remained stable since admission; continue amlodipine 10 mg p.o. daily. BP is moderately controlled with blood pressure measurement today 135/99-158/81. Currently patient is acutely ill. There is no indication for titration of his medication. (3) Chronic obstructive pulmonary disease, unspecified: Code(s): J44.9 - Chronic obstructive pulmonary disease, unspecified Status: Acute Assessment and Plan: Continue scheduled inhaler. Patient started on budesonide nebulization twice a day. Continue steroid per Pulmonary recommendations. (4) CVA (cerebral vascular accident): Code(s): I63.9 - Cerebral infarction, unspecified Status: Acute Assessment and Plan: Patient has a history of stroke with residual expressive aphasia. Patient has difficulty expressing his thoughts. However he is fully cognizant. Subjective Date/time seen: 12/10/21 07:49 S: Patient was seen examined at the bedside. He was started on BiPAP overnight and was nauseous this morning on non rebreather. On my 2nd visit, patient was on Airvo. Patient face time with his son. He confirms a DNI order. Review of Systems Review of Systems: All systems reviewed & are unremarkable except as noted in HPI and below Constitutional: Constitutional: Reports as per HPI, Reports fatigue, Reports fever(s), Reports lethargy and Reports weakness Eyes: Eyes: Reports as per HPI and Denies blurry vision ENT: Reports as per HPI, Denies dysphagia and Denies epistaxis Cardiovascular: Cardiovascular: Reports as per HPI, Denies chest pain, Denies leg edema, Denies palpitations and Reports dyspnea Respiratory: Respiratory: Reports as per HPI, Reports cough, Denies hemoptysis, Reports dyspnea and Denies wheezing Ga
[2021-12-10] MEDS: ONDANSETRON INJ 4 MG/2 ML VIAL IV PUSH (07:52)
[2021-12-10] MEDS: ATORVASTATIN 40 MG TABLET 80 MG PO (09:29)
[2021-12-10] MEDS: busPIRone HCL 5 MG TABLET PO (09:29)
[2021-12-10] MEDS: amLODIPine BESYLATE 5 MG TABLET PO (09:30)
[2021-12-10] MEDS: ASPIRIN 81 MG ENTERIC TABLET PO (09:30)
[2021-12-10] MEDS: ENOXAPARIN 40 MG/0.4 ML SYRINGE SUB-Q (09:30)
[2021-12-10] MEDS: REMDESIVIR 100 MG/NS 250 ML 100 MG/250 ML BAG 250 MG IVPB (11:45)
[2021-12-10] MEDS: BARICITINIB 2 MG TABLET 4 MG PO (11:46)
[2021-12-10] MEDS: BUDESONIDE RESPULE NEB 0.5 MG/2 ML AMP INHALATION ×2 (12:09→22:14)
[2021-12-11] VITALS (14 sets, daily range): BP systolic 137–150; BP diastolic 67–94; PULSE 75–133; RESP 20–39; TEMP 36.3–36.8; O2SAT 84–93
[2021-12-11] MEDS: ALBUTEROL SULFATE NEB 2.5 MG/0.5 ML INH 5 MG INHALATION (01:50)
[2021-12-11] MEDS: IPRATROPIUM BR 0.02% INH SOLN 0.5 MG/2.5 ML VIAL INHALATION ×3 (01:50→13:25)
[2021-12-11] MEDS: ONDANSETRON INJ 4 MG/2 ML VIAL IV PUSH (09:31)
[2021-12-11] MEDS: ENOXAPARIN 40 MG/0.4 ML SYRINGE SUB-Q (09:31)
[2021-12-11] MEDS: BUDESONIDE RESPULE NEB 0.5 MG/2 ML AMP INHALATION (10:22)
[2021-12-11] MEDS: ALBUTEROL SULFATE NEB 2.5 MG/0.5 ML INH INHALATION ×2 (10:22→13:25)
--- NOTE | 2021-12-11 10:54 | PM.PNPUL ---
Progress Note: A&P Assessment and Plan (1) Acute respiratory disease due to COVID-19 virus: Code(s): U07.1 - COVID-19; J06.9 - Acute upper respiratory infection, unspecified Status: Acute Assessment and Plan: Patient tested positive for COVID-19 on 12/06 and started on remdesivir, dexamethasone on 12/06 - Remdesivir for 10 days unless he should recover and tolerate room air with rest, ambulation and while sleeping. - Dexamethasone 6 mg IV for 10 days - Continuous pulse oximetry - Prone positioning as tolerated. - Avoid any fluid overload. - No evidence of bacterial infection at this time. Agree with no antibiotics. - Albuterol And ipratropium nebulizers q.4 hours for now, no wheezes. - Will check influenza swab. Keep saturations are 90-94% with nasal cannula up to 15 L, if fails then Airvo high flow nasal cannula and add tocilizumab or baracitinib, if fails then BiPAP, if fails then mechanical ventilation if he remains a full code. 12/11 patient continued to deteriorate over the weekend requiring high-flow nasal cannula and baricitinib on 12/09/2020. Patient required BiPAP on 12/10/2020 and today when I saw the patient on 18/09 and 100% he was in respiratory distress with sats of 82%. I switched him to noninvasive ventilation with an a VATS mode rate of 24, tidal volume 500, EPAP 15, IPAP minimum 16, IPAP maximum 25, inspiratory time 1.2, rise 3 and 100% FiO2 to saturations remained 82%. Patient is do not intubate and He continues to deteriorate despite Remdesivir, steroids and baricitinib. The hospitalist is going to discuss level of care with the family. Discussed with Dr. Campoverde (2) Respiratory failure with hypoxia: Code(s): J96.91 - Respiratory failure, unspecified with hypoxia Status: Acute Assessment and Plan: Etiology of hypoxic respiratory failure is COVID pneumonia. CT angiogram was negative for PE. No evidence of fluid overload on exam. I will check a Chest x-ray and BNP in the morning. Patient tells me he has had enough blood tests and is refusing a blood gas at this time. 12/06 11:00 RA 90% 12/06 14:45 2L 93% 12/07 14:45 5 L 94% 12/07 20:00 5 L 90% 12/08 09:15 5 L 90% 12/08 16:00 9 L 90% 12/11 08:30 noninvasive ventilation with the AVAPS mode and 100% FiO2 with a EPAP of 15, saturations 82%. Subjective Date/time seen: 12/11/21 10:54 Interval history: 12/08/2021: This is a new Pulmonary consult for COVID pneumonia with hypoxemic respiratory failure. 71 year old man with a history of CVA, expressive aphasia, hypertension, essential tremor, anxiety, COPD from tobacco exposure presented to the emergency room on 12/06/2021 with shortness of breath and hypoxemic respiratory failure. patient has lost his taste and smell and had worsening shortness of breath. His white blood cell count was 7.1, creatinine 1.1, chest x-ray without focal infiltrates, his D-dimer was positive and he had a CT angiogram of the chest that showed no pulmonary embolism, mild apical predominant centrilobular emphysema and small right middle lobe peripheral ground-glass infiltrate, small left lower lobe peripheral infiltrate and mild right lower lobe peripheral infiltrate. His rapid COVID antigen test was positive and he was started on Remdesivir and dexamethasone on 12/06. patient required 2 L nasal cannula. On 12/07 patient required 5 L nasal cannula. I was consulted. Of note patient is on vaccinated and states that 3 of his family members also have COVID. Patient states that he has COPD but he is on no COPD medicines. Patient smoked tobacco from age 28 to 1 year ago at 1 pack per day for a total of 42 pack years. Patient denies vaping, illicit drug use, and does state he worked in the [employer] but cannot tell me what he did. On 12/08/2021 patient States that he is feeling minimally better and still has dyspnea on exertion. Patient denies fever, chills, rigors, rest shortness of breath, hemop
--- NOTE | 2021-12-11 11:13 | PM.IMPN ---
Progress Note: A&P Assessment and Plan (1) Acute respiratory disease due to COVID-19 virus: Code(s): U07.1 - COVID-19; J06.9 - Acute upper respiratory infection, unspecified Status: Acute Assessment and Plan: Unvaccinated patient previously diagnosed on the home COVID test. Patient originally presented with fairly mild symptoms, had a new oxygen requirement at 2 L on 12/07. On 12/08 he experience worsening acute respiratory failure requiring 5 L of oxygen supplementation. On 12/09, patient had to be switched on high-flow therapy with nasal cannula at 15 L. Early during the day the patient required 15 L and was later started with Airvo during the afternoon. 12/10/2022: Patient required BiPAP overnight; he became nauseous this morning and had to be switched to non-rebreather. He was given a single dose of IV lasix. He was saturating 85% on non-rebreather and had to be started on Airvo. Currently saturating 95%. Currently he has been weaned to non-rebreather. Pulmonary has been consulted. Influenza swab came back negative. Ferritin elevated at 12 70. C-reactive protein increased from 4.2-5.6 today. LDH is elevated at 1000. - Remdesivir for 10 days unless he should recover and tolerate room air with rest, ambulation and while sleeping. - Dexamethasone 6 mg IV for 10 days - Continuous pulse oximetry - Prone positioning as tolerated. - Avoid any fluid overload. - No evidence of bacterial infection at this time. - Albuterol And ipratropium nebulizers q.4 hours for now, no wheezes. -I discussed with his on the phone and his son Jose. They are require transfer. Given the current pandemic and the lack of ability availability a call was made to [facility] and [place]. However patient is unstable and would not be able to sustain the trip without being intubated. Face time call was made with the phone. Patient confirms he does not want intubation. Patient is currently listed at [facility] in [place]. Stability for transfer will be revisited once a bed is made available. (2) Essential (primary) hypertension: Code(s): I10 - Essential (primary) hypertension Status: Acute Assessment and Plan: Blood pressure has remained stable since admission; continue amlodipine 10 mg p.o. daily. BP is moderately controlled with blood pressure measurement today 135/99-158/81. Currently patient is acutely ill. There is no indication for titration of his medication. (3) Chronic obstructive pulmonary disease, unspecified: Code(s): J44.9 - Chronic obstructive pulmonary disease, unspecified Status: Acute Assessment and Plan: Continue scheduled inhaler. Patient started on budesonide nebulization twice a day. Continue steroid per Pulmonary recommendations. (4) CVA (cerebral vascular accident): Code(s): I63.9 - Cerebral infarction, unspecified Status: Acute Assessment and Plan: Patient has a history of stroke with residual expressive aphasia. Patient has difficulty expressing his thoughts. However he is fully cognizant. 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 After discussion with the family, Araseli patient was made DNR and hospice care was ordered. Subjective Date/time seen: 12/11/21 11:13 Patient was seen during the morning rounds today. Continue to desaturate on BiPAP. No shortness of breath, no chest pain. No abdominal pain, nausea, no vomiting. Interval history: Review of Systems Review of Systems: All systems reviewed & are unremarkable except as noted in HPI and below Constitutional: Constitutional: Reports as per HPI, Reports fatigue, Reports fever(s), Reports lethargy and Reports weakness Eyes: Eyes: Reports as per HPI and Denies blurry vision ENT: Reports as per HPI, Denies dysphagia and Denies epistaxis Cardiovascular: Cardiovascular: Reports as per HPI, Denies chest pain, Denies leg edema, Denies
[2021-12-11] MEDS: MORPHINE SULFATE (*CRX) 4 MG/ML INJ IV PUSH (11:43)
[2021-12-11 12:05] LABS: Hematocrit 28.2 % (42.0-52.0); Hemoglobin 9.7 g/dL (14.0-18.0); Mean Corpuscular HGB Conc 34.4 g/dl (32-36); Mean Corpuscular Volume 90.1 fl (80-100); Mean Platelet Volume 9.8 fl (7.4-10.4); Platelet Count Result 388 k/mm3 (150-375); Red Blood Count 3.13 M/mm3 (4.6-6.20); White Blood Count 26.7 K/mm3 (4.5-10.0)
[2021-12-11 12:16] LABS: INR 1.1; Prothrombin Time 14.3 Seconds (11.1-14.7)
[2021-12-11 12:22] LABS: Alanine Aminotransferase 32 U/L (4-50); Estimated CRCL calculation 42 ml/min; Estimated Glomerular Filt Rate 54
[2021-12-11 12:32] LABS: Band Neutrophils Percent 5 % (0-6); Lymphocytes Absolute Manual 0.53 K/mm3 (1.1-4.5); Neutrophils Absolute Manual 26.16 K/mm3 (1.3-6.7); Neutrophils Percent Manual 93 % (46-73); Platelet Estimate Adequate (Adequate); Total Cells Counted 100
[2021-12-11 12:46] LABS: Aspartate Amino Transferase 62 U/L (17-59)
--- NOTE | 2022-01-09 14:09 | PM.DS ---
DS: Admitting Diagnosis Discharge Date 12/11/21 Admitting Diagnosis Covid pneumonia Acute resp failure with hypoxia DS: Discharge Diagnosis Discharge Diagnosis (1) Acute respiratory disease due to COVID-19 virus: Code(s): U07.1 - COVID-19; J06.9 - Acute upper respiratory infection, unspecified Status: Acute Assessment and Plan: Unvaccinated patient previously diagnosed on the home COVID test. Patient originally presented with fairly mild symptoms, had a new oxygen requirement at 2 L on 12/07. On 12/08 he experience worsening acute respiratory failure requiring 5 L of oxygen supplementation. On 12/09, patient had to be switched on high-flow therapy with nasal cannula at 15 L. Early during the day the patient required 15 L and was later started with Airvo during the afternoon. 12/10/2022: Patient required BiPAP overnight; he became nauseous this morning and had to be switched to non-rebreather. He was given a single dose of IV lasix. He was saturating 85% on non-rebreather and had to be started on Airvo. Currently saturating 95%. Currently he has been weaned to non-rebreather. Pulmonary has been consulted. Influenza swab came back negative. Ferritin elevated at 12 70. C-reactive protein increased from 4.2-5.6 today. LDH is elevated at 1000. - Remdesivir for 10 days unless he should recover and tolerate room air with rest, ambulation and while sleeping. - Dexamethasone 6 mg IV for 10 days - Continuous pulse oximetry - Prone positioning as tolerated. - Avoid any fluid overload. - No evidence of bacterial infection at this time. - Albuterol And ipratropium nebulizers q.4 hours for now, no wheezes. -I discussed with his on the phone and his son Jose. They are require transfer. Given the current pandemic and the lack of ability availability a call was made to [facility] and [place]. However patient is unstable and would not be able to sustain the trip without being intubated. Face time call was made with the phone. Patient confirms he does not want intubation. Patient is currently listed at [facility] in [place]. Stability for transfer will be revisited once a bed is made available. (2) Essential (primary) hypertension: Code(s): I10 - Essential (primary) hypertension Status: Acute Assessment and Plan: Blood pressure has remained stable since admission; continue amlodipine 10 mg p.o. daily. BP is moderately controlled with blood pressure measurement today 135/99-158/81. Currently patient is acutely ill. There is no indication for titration of his medication. (3) Chronic obstructive pulmonary disease, unspecified: Qualifiers: COPD type: unspecified COPD Qualified Code(s): J44.9 - Chronic obstructive pulmonary disease, unspecified Code(s): J44.9 - Chronic obstructive pulmonary disease, unspecified Status: Acute Assessment and Plan: Continue scheduled inhaler. Patient started on budesonide nebulization twice a day. Continue steroid per Pulmonary recommendations. (4) CVA (cerebral vascular accident): Qualifiers: CVA mechanism: unspecified Qualified Code(s): I63.9 - Cerebral infarction, unspecified Code(s): I63.9 - Cerebral infarction, unspecified Status: Acute Assessment and Plan: Patient has a history of stroke with residual expressive aphasia. Patient has difficulty expressing his thoughts. However he is fully cognizant. DS: Summary Hospital Course Reason for hospitalization: covid pneumonia Hospital Course: Patient was admitted because of covid pneumonia. Patient ws in resp failure with hypoxia. patient was given steroids and antibiotics. patient goyt better and was discharged in stable condition. Status at Discharge Cognitive/behavioral status at discharge: Stable Overall status at discharge: patient is back to baseline Time Spent with Patient Time attestation: Total time spent providing and/or coordinating discha
== END 2021-12-11 14:16 | disposition hospice, inpatient (51) | DRG 177 ==
LOC: ANHED 15:58 → ANH3MEDSUR 21:53 → ANHIMU 12-09 17:16
PROVIDERS: Internal Medicine; Internal Medicine Pulmonary Disease; Admitting Provider Internal Medicine; Emergency Provider Emergency Medicine; PCP Internal Medicine; Visit Provider Internal Medicine
DX: U07.1 COVID-19 (principal); J12.82 Pneumonia due to coronavirus disease 2019; J96.01 Acute respiratory failure with hypoxia; J44.0 Chronic obstructive pulmonary disease with (acute) lower respiratory infection; J44.9 Chronic obstructive pulmonary disease, unspecified; I10 Essential (primary) hypertension; F41.9 Anxiety disorder, unspecified; N40.0 Benign prostatic hyperplasia without lower urinary tract symptoms; I69.320 Aphasia following cerebral infarction; Z90.49 Acquired absence of other specified parts of digestive tract; Z87.891 Personal history of nicotine dependence
CPT/HCPCS: 36415; 71045; 71275; 80048; 80053; 82565; 82728; 83605; 83615; 83735; 83880; 84100; 84450; 84460; 85025; 85380; 85610; 85652; 86140; 87426; 87804; 94002; 94003; 94640; 96365; 96375; 99285; A9270; C9803; J1100; J1650; J1940; J2270; J2405; Q9967

== ENCOUNTER 2021-12-11 13:40 | HOS | payer OTHER, MEDICARE, SELFPAY ==
[2021-12-11] MEDS: MORPHINE SULFATE INJ (*CRX) 50 MG in SODIUM CHLORIDE 0.9% IV 95 ML IV CONT (15:37)
[2021-12-11] MEDS: LORazepam INJ (*CRX) 2 MG/ML VIAL 1 MG IV PUSH (15:39)
[2021-12-11] MEDS: MORPHINE SULFATE (*CRX) 2 MG/ML INJ IV PUSH (15:39)
[2021-12-11 16:01] VITALS: O2SAT 65
[2021-12-11 20:00] VITALS: PULSE 103; O2SAT 65
--- NOTE | 2021-12-11 20:14 | PM.IMHP ---
H&P: HPI History of Present Illness Date/Time: 12/11/21 20:14 Chief Complaint: Uncontrolled dyspnea Narrative: This 71-year-old gentleman with a history of stroke and expressive aphasia as well as COPD was admitted on December 06 with dyspnea and hypoxia. He initially required 2 L of oxygen. Chest x-ray was negative a CTA of chest revealed multilobar ground glass infiltrates. His oxygen requirements increased over the next couple of days to 5 L then to 15 and to a BiPAP and then non-rebreather. As the patient was becoming more dyspneic he participated in a video call with his spouse during which she expressed the wish to avoid mechanical ventilation. Because of increasing dyspnea and worsening respiratory status in spite of appropriate medical therapy with remdesivir and dexamethasone he was transition to inpatient hospice care for control of his symptoms. Review of Systems Review of Systems: ROS unobtainable: Yes unobtainable due to medical condition PMFSH Past Medical History Medical History Anxiety Chronic obstructive pulmonary disease, unspecified CVA (cerebral vascular accident) Enlarged prostate without lower urinary tract symptoms (luts) Essential (primary) hypertension Essential tremor Hyperlipidemia, unspecified Surgical History Surgical History H/O hernia repair History of appendectomy Family History Family History Mother Patient's mother is in good health Social History Social History (Updated 12/11/21 @ 20:17 by Philip Lucas MD) Smoking packs per day: 3 Smoking cigarettes per day: 60.0 Years smoked: 60 Smoking pack-years: 180.00 Smoking status: Former smoker Alcohol intake: never Substance use: never Occupation/Education: retired Spiritual care concerns: No Meds Home Medications and Allergies Home Medications Medication Instructions Recorded Confirmed Type amlodipine 5 mg tablet 5 mg PO DAILY #90 tablet 06/19/21 12/06/21 Rx aspirin 81 mg tablet,delayed 81 mg PO DAILY #90 tablet 10/30/21 12/06/21 Rx release atorvastatin 80 mg tablet 80 mg PO DAILY #90 tablet 10/30/21 12/06/21 Rx buspirone 5 mg tablet 5 mg PO DAILY tablet 11/20/21 12/06/21 History Allergies Allergy/AdvReac Type Severity Reaction Status Date / Time No Known Allergies Allergy Verified 12/06/21 23:02 Vital Signs Vital Signs - 24 hr 12/11/21 16:01 Pulse Oximetry 65 L Exam Narrative: Chronically ill-appearing elderly gentleman in no acute distress, though mildly tachypneic Unresponsive to tactile and verbal stimuli Mucous membranes moist Neck without JVD Chest with coarse breath sounds throughout Heart regular rate Abdomen hypoactive bowel sounds soft no mass Extremities edema cyanosis or clubbing Musculoskeletal without gross deformity Neurologic with right facial droop Assessment and Plan Assessment and plan (1) Palliative care by specialist: Code(s): Z51.5 - Encounter for palliative care Status: Acute Assessment and Plan: Meet inpatient hospice criteria due to requirement for continuous IV morphine for control of dyspnea Remainder palliative regimen as ordered (2) Respiratory failure with hypoxia: Qualifiers: Chronicity: acute Qualified Code(s): J96.01 - Acute respiratory failure with hypoxia Code(s): J96.91 - Respiratory failure, unspecified with hypoxia Status: Acute (3) Acute respiratory disease due to COVID-19 virus: Code(s): U07.1 - COVID-19; J06.9 - Acute upper respiratory infection, unspecified Status: Acute (4) Chronic obstructive pulmonary disease, unspecified: Qualifiers: COPD type: unspecified COPD Qualified Code(s): J44.9 - Chronic obstructive pulmonary disease, unspecified Code(s): J44.9 - Chronic obstructive pulmonary
[2021-12-12 00:02] VITALS: PULSE 116; O2SAT 84
[2021-12-12 05:29] VITALS: PULSE 93; O2SAT 81
[2021-12-12 08:00] VITALS: O2SAT 49; BMI 26.6
[2021-12-12 08:16] VITALS: BP 154/56; PULSE 112; RESP 22; TEMP 36.5; O2SAT 48
[2021-12-12] MEDS: MORPHINE SULFATE (*CRX) 2 MG/ML INJ IV PUSH ×2 (09:05→11:26)
[2021-12-12] MEDS: LORazepam INJ (*CRX) 2 MG/ML VIAL 1 MG IV PUSH ×2 (09:05→11:26)
--- NOTE | 2021-12-12 12:18 | PC.NURSE ---
Patient at 1147 on 12/12/21. Patient's son/POA notified of expiration.
--- NOTE | 2021-12-12 17:26 | P.DN_ITS ---
Discharge Summary Date and Time Date of : 12/12/21 Time of : 11:47 Provider Pronounced By: Eugenia Don RN and Eugenia Bautista RN Probable Cause of Probable Cause of : ACUTE HYPOXIC RESPIRATORY FAILURE DUE TO COVID-19 PNEUMONIA Summary Hospital Course: ADMITTED INPATIENT HOSPICE SERVICE DUE TO WORSENED RESPIRATORY FAILURE WITH COVID-19 PNEUMONIA IN SPITE OF APPROPRIATE THERAPY AND WITH ASSOCIATED SEVERE DYSPNEA. MEDICATIONS WERE TITRATED TO COMFORT. PATIENT PEACEFULLY. Additional Data Confirmation of as documented by pronouncing clinician: Pupillary Reflex, Palpable Pulses, Response to Stimuli, Heart Tones and Breath Sounds Name of Provider Notified: [facility] Time Provider Notified: 11:48 Provider Requests Autopsy: No Family Requests Autopsy: No [employer] Notified: Yes Date [facility] Notified of : 12/12/21 Time [facility] Notified of : 11:49
== END 2021-12-12 11:47 | disposition expired | DRG 951 ==
PROVIDERS: Admitting Provider Internal Medicine; PCP Internal Medicine; Visit Provider Internal Medicine
DX: Z51.5 Encounter for palliative care (principal); J96.01 Acute respiratory failure with hypoxia; U07.1 COVID-19; J12.82 Pneumonia due to coronavirus disease 2019; I63.9 Cerebral infarction, unspecified; J44.0 Chronic obstructive pulmonary disease with (acute) lower respiratory infection; N40.0 Benign prostatic hyperplasia without lower urinary tract symptoms; I10 Essential (primary) hypertension; E78.5 Hyperlipidemia, unspecified; F41.9 Anxiety disorder, unspecified; Z90.49 Acquired absence of other specified parts of digestive tract; Z87.891 Personal history of nicotine dependence
CPT/HCPCS: A9270; J2060; J2270